=== PATIENT | female | born 1940 | race Caucasian/White ===

== ENCOUNTER 2021-02-25 09:04 | Inpatient (IN) | payer MEDICARE, OTHER ==
[2021-02-25] VITALS (9 sets, daily range): BP systolic 103–147; BP diastolic 61–87
[~2021-02-25] VITALS: Ht 160 cm; Wt 100.2 kg
[~2021-02-25 09:04] MED LIST: ALBUAER3 IN; ALLO300T2 PO; AMIT50TA3 PO; CHOL100067 PO; CYAN-17 PO; FLUT1AER3 IN; LEV100T PO; LOSA-39 PO; MAGN400T40 PO; MILK1000 OR; MONT4CHW9 PO; PANT40T PO; POTA10TA51 PO; SUMA50TA2 PO
[2021-02-25] MEDS ORDERED: CELECOXIB 100 MG CAP PO ONE (11:15)
[2021-02-25] MEDS ORDERED: PREGABALIN CAPSULE 75 MG CAP PO ONE (11:15)
[2021-02-25] MEDS ORDERED: ACETAMINOPHEN IV 1000 MG/100ML (10MG/ML) IV ONE (11:15)
[2021-02-25] MEDS ORDERED: ceFAZolin 1GM/50ML 100 ML IV ONE (11:52)
[2021-02-25] MEDS ORDERED: MORPHINE SULF(PF) 0.5MG/ML 10ML VIAL ONE (12:31)
[2021-02-25] MEDS ORDERED: GLYCOPYRROLATE 0.2 MG/ML 1ML VIAL ONE (12:32)
[2021-02-25] MEDS ORDERED: ONDANSETRON HCL 4 MG/2 ML VIAL ONE (12:32)
[2021-02-25] MEDS ORDERED: fentaNYL CITRATE 100 MCG/2 ML VL ONE (12:32)
[2021-02-25] MEDS ORDERED: KETAMINE HCL 10 ML ONE (12:32)
[2021-02-25] MEDS ORDERED: PROPOFOL 10 MG/ML 20 ML IV ONE (12:32)
[2021-02-25] MEDS ORDERED: LIDOCAINE 2% (LOCAL ANESTH.) PF 5ml SDV ONE (12:32)
[2021-02-25] MEDS ORDERED: MIDAZOLAM HCL 2MG/2ML 2ml VIAL (1mg/ml) ONE (12:32)
[2021-02-25] MEDS ORDERED: TETRACAINE 1% INJ 2 ML VIAL IJ ONE (13:19)
[2021-02-25] MEDS ORDERED: ROPIVACAINE 0.5% (5MG/ML) 20ML AMPULE IJ ONE (13:19)
[2021-02-25] MEDS ORDERED: FAMOTIDINE (10MG/ML) 2ML VL IV ONE (13:19)
[2021-02-25] MEDS ORDERED: TRANEXAMIC ACID 20 ML ONE (13:19)
[2021-02-25] MEDS ORDERED: VANCOMYCIN HCL 1000 MG VL ONE (13:23)
[2021-02-25] MEDS ORDERED: KETOROLAC TROMETH 30 MG/ML 1ML VIAL ONE (13:23)
[2021-02-25] MEDS ORDERED: BUPIVACAINE 0.25% INJ 50ML VIAL ONE (13:24)
[2021-02-25] MEDS ORDERED: LOPERAMIDE HCL 2 MG CAP PO ONE (13:30)
[2021-02-25] MEDS ORDERED: ONDANSETRON HCL 4 MG/2 ML VIAL IV PRN ×2 (15:45→16:00)
[2021-02-25] MEDS ORDERED: LOPERAMIDE HCL 2 MG CAP PO PRN (15:45)
[2021-02-25] MEDS ORDERED: SUMATRIPTAN SUCCINATE 50 MG PO SCH (15:45)
[2021-02-25] MEDS ORDERED: MORPHINE SULF INJ 2 MG/ML SYRINGE 1ML IV PRN (15:45)
[2021-02-25] MEDS ORDERED: ACETAMINOPHEN 325 MG TAB PO PRN (15:45)
[2021-02-25] MEDS ORDERED: NITROGLYCERIN 0.4 MG SL TAB SL PRN (15:45)
[2021-02-25] MEDS ORDERED: diphenhdrAMINE HCL 50 MG/1 ML VL IV PRN (16:00)
[2021-02-25] MEDS ORDERED: DexAMETHasone SOD PHOS 10MG/1ML VIAL INJ IV PRN (16:00)
[2021-02-25] MEDS ORDERED: NALOXONE HCL 0.4 MG/ML VIAL IV PRN (16:00)
[2021-02-25] MEDS: HYDROmorphone HCL 2 MG/ML VL IV PRN (17:35)
[2021-02-25] MEDS: ALBUTEROL SULF HFA 90MCG INH 200DOSE IN SCH (22:00)
[2021-02-25] MEDS: AMITRIPTYLINE HCL 25 MG TAB PO SCH (22:13)
[2021-02-25] MEDS: POTASSIUM CHL 10 Meq TABLET PO SCH (22:13)
[2021-02-26] VITALS (21 sets, daily range): BP systolic 91–136; BP diastolic 49–78
[2021-02-26] MEDS: POTASSIUM CHL 10 Meq TABLET PO SCH (06:30)
[2021-02-26] MEDS: KETOROLAC TROMETH 30 MG/ML 1ML VIAL IV SCH ×4 (06:30→18:06)
[2021-02-26] MEDS: LEVOTHYROXINE SODIUM 50 MCG TAB PO SCH (07:10)
[2021-02-26 08:38] LABS: Hematocrit 35.9 % (36.0-46.0); Hemoglobin 12.1 g/dL (12.2-16.2)
[2021-02-26 08:47] LABS: Albumin 2.8 g/dL (3.4-5.0); Calcium 8.5 mg/dL (8.5-10.1); Potassium 5.1 mmol/L (3.5-5.1)
[2021-02-26 08:48] LABS: BUN/Creatinine Ratio 19.7
[2021-02-26 08:51] LABS: Bilirubin, Total 0.8 mg/dL (0.2-1.0); Total Protein 5.6 g/dL (6.4-8.2)
[2021-02-26] MEDS: LACTATED RINGER'S 1,000 ML IV SCH ×4 (09:50→21:22)
[2021-02-26] MEDS: ceFAZolin 1GM/50ML 50 ML IV SCH ×3 (09:51→18:06)
[2021-02-26] MEDS: ALBUTEROL SULF HFA 90MCG INH 200DOSE IN SCH ×2 (10:00→21:39)
[2021-02-26] MEDS ORDERED: LOSARTAN POTASSIUM 50 MG TAB PO SCH (10:00)
[2021-02-26] MEDS: PANTOPRAZOLE 40 MG TAB PO SCH (10:04)
[2021-02-26] MEDS: ENOXAPARIN SOD 40 MG/0.4 ML SYRINGE SC SCH (10:10)
[2021-02-26] MEDS: AMITRIPTYLINE HCL 25 MG TAB PO SCH (21:39)
[2021-02-27] MEDS: KETOROLAC TROMETH 30 MG/ML 1ML VIAL IV SCH (00:09)
[2021-02-27] MEDS: ceFAZolin 1GM/50ML 50 ML IV SCH ×2 (00:09→06:15)
[2021-02-27 05:00] VITALS: BP 114/54
[2021-02-27 05:19] LABS: Basophils # (auto) 0 10 ^3/uL (0-0.2); Basophils % (auto) 0.1 % (0.0-2.0); Eosinophils # (auto) 0 10 ^3/uL (0-0.8); Eosinophils % (auto) 0.1 % (0.0-7.0); Mean Corpuscular Hemoglobin 34.2 pg (28.0-32.0); Monocytes # (auto) 1.7 10 ^3/uL (0-1.3); Neutrophils # (auto) 6.8 10 ^3/uL (1.6-8.6)
[2021-02-27 05:21] LABS: Hematocrit 31.6 % (36.0-46.0); Hemoglobin 11.1 g/dL (12.2-16.2); Lymphocytes # (auto) 1.8 10 ^3/uL (0.4-5.4); Lymphocytes % (auto) 17.3 % (10.0-50.0); Mean Corpuscular Hgb Conc. 35.2 g/dL (32.0-36.0); Mean Corpuscular Volume 97.2 fL (80.0-100.0); Monocytes % (auto) 16.7 % (0.0-12.0); Neutrophils % (auto) 65.8 % (37.0-80.0); Red Blood Cells 3.26 10^6/uL (4.0-5.20); Red Cell Distribution Width 14.1 % (11.8-14.3); White Blood Cell 10.3 10^3/uL (4.4-10.8)
[2021-02-27 05:37] LABS: BUN/Creatinine Ratio 27.2; Calcium 8.4 mg/dL (8.5-10.1); Magnesium 2.1 mg/dL (1.6-2.6); Potassium 4.2 mmol/L (3.5-5.1)
[2021-02-27] MEDS: LEVOTHYROXINE SODIUM 50 MCG TAB PO SCH (06:30)
[2021-02-27 08:56] VITALS: BP 103/43
[2021-02-27] MEDS: ALBUTEROL SULF HFA 90MCG INH 200DOSE IN SCH (10:00)
[2021-02-27] MEDS: OXYCODONE W/ ACETAMINOPHEN 5/325MG TABLET PO PRN (11:00)
[2021-02-27] MEDS: PANTOPRAZOLE 40 MG TAB PO SCH (11:04)
[2021-02-27] MEDS: ENOXAPARIN SOD 40 MG/0.4 ML SYRINGE SC SCH (11:04)
[2021-02-27] MEDS: HYDROmorphone HCL 2 MG/ML VL IV PRN ×2 (12:46→14:52)
[2021-02-27 13:00] VITALS: BP 102/48
[2021-02-27 17:00] VITALS: BP 97/42
[2021-02-27] MEDS: AMITRIPTYLINE HCL 25 MG TAB PO SCH (21:34)
[2021-02-27 22:00] VITALS: BP 124/50
[2021-02-28 05:00] VITALS: BP 139/52
[2021-02-28 06:20] LABS: Hematocrit 28.1 % (36.0-46.0); Hemoglobin 10.1 g/dL (12.2-16.2)
[2021-02-28] MEDS: LEVOTHYROXINE SODIUM 50 MCG TAB PO SCH (06:28)
[2021-02-28] MEDS: ONDANSETRON HCL 4 MG/2 ML VIAL IV PRN (06:50)
[2021-02-28] MEDS: HYDROmorphone HCL 2 MG/ML VL IV PRN ×2 (06:50→18:00)
[2021-02-28 09:00] VITALS: BP 86/37
[2021-02-28] MEDS: PANTOPRAZOLE 40 MG TAB PO SCH (09:30)
[2021-02-28] MEDS: ENOXAPARIN SOD 40 MG/0.4 ML SYRINGE SC SCH (09:31)
[2021-02-28] MEDS: ALBUTEROL SULF HFA 90MCG INH 200DOSE IN SCH (09:31)
[2021-02-28] MEDS ORDERED: ALBUTEROL SULF 2.5 MG/0.5ML(0.5%) NEB SOLN NEB PRN (10:00)
[2021-02-28] MEDS ORDERED: SODIUM CHLORIDE 0.9% 500 ML IV ONE (10:30)
[2021-02-28] MEDS: ALBUTEROL SULF 2.5 MG/0.5ML(0.5%) NEB SOLN NEB SCH ×4 (10:48→21:56)
[2021-02-28 13:00] VITALS: BP 119/60
[2021-02-28 13:29] VITALS: BP 86/37
[2021-02-28 17:00] VITALS: BP 129/82
[2021-02-28] MEDS: AMITRIPTYLINE HCL 25 MG TAB PO SCH (21:27)
[2021-02-28] MEDS: OXYCODONE W/ ACETAMINOPHEN 5/325MG TABLET PO PRN (21:27)
[2021-02-28 22:00] VITALS: BP 102/82
[2021-03-01 05:00] VITALS: BP 120/61
[2021-03-01] MEDS: LEVOTHYROXINE SODIUM 50 MCG TAB PO SCH (06:38)
[2021-03-01] MEDS: ALBUTEROL SULF 2.5 MG/0.5ML(0.5%) NEB SOLN NEB SCH ×5 (07:18→22:34)
[2021-03-01] MEDS: OXYCODONE W/ ACETAMINOPHEN 5/325MG TABLET PO PRN ×2 (08:45→19:58)
[2021-03-01 09:00] VITALS: BP 113/79
[2021-03-01] MEDS: PANTOPRAZOLE 40 MG TAB PO SCH (10:35)
[2021-03-01] MEDS: ENOXAPARIN SOD 40 MG/0.4 ML SYRINGE SC SCH (10:35)
[2021-03-01] MEDS: SOD CHL 0.45% 1,000 ML IV SCH ×4 (10:36→20:30)
[2021-03-01 11:24] LABS: Calcium 8.6 mg/dL (8.5-10.1)
[2021-03-01 11:27] LABS: BUN/Creatinine Ratio 32.9
[2021-03-01] MEDS ORDERED: IOHEXOL 350 MG/ML 100ML IJ ONE ×2 (12:06→13:35)
[2021-03-01 12:55] VITALS: BP 126/58
[2021-03-01] MEDS ORDERED: HEPARIN DRIP/D5W 100UNITS/ML 250 ML IV SCH ×2 (16:00→17:00)
[2021-03-01 16:35] LABS: Basophils # (auto) 0 10 ^3/uL (0-0.2); Basophils % (auto) 0.2 % (0.0-2.0); Eosinophils # (auto) 0.1 10 ^3/uL (0-0.8); Eosinophils % (auto) 1.7 % (0.0-7.0); Hematocrit 29.9 % (36.0-46.0); Hemoglobin 10.3 g/dL (12.2-16.2); Lymphocytes % (auto) 23.8 % (10.0-50.0); Mean Corpuscular Hemoglobin 33.7 pg (28.0-32.0); Mean Corpuscular Hgb Conc. 34.5 g/dL (32.0-36.0); Mean Corpuscular Volume 97.7 fL (80.0-100.0); Monocytes # (auto) 1.3 10 ^3/uL (0-1.3); Monocytes % (auto) 15.2 % (0.0-12.0); Neutrophils % (auto) 59.1 % (37.0-80.0); Nucleated Red Blood Cells % 0.1 %; Red Blood Cells 3.06 10^6/uL (4.0-5.20); White Blood Cell 8.4 10^3/uL (4.4-10.8)
[2021-03-01 16:50] LABS: INR 1.01 (0.9-1.15); Partial Thromboplastin Time 26.8 sec (23.0-31.2)
[2021-03-01 16:57] VITALS: BP 128/58
[2021-03-01] MEDS ORDERED: HEPARIN SODIUM (PORCINE) 5000 UNITS/ML 1ML VIAL IV ONE (17:00)
[2021-03-01] MEDS: AMITRIPTYLINE HCL 25 MG TAB PO SCH (21:10)
[2021-03-01 22:00] VITALS: BP 126/52
[2021-03-01 23:45] LABS: INR 1.05 (0.9-1.15); Partial Thromboplastin Time 63.5 sec (23.0-31.2)
[2021-03-02 05:00] VITALS: BP 126/65
[2021-03-02] MEDS: SOD CHL 0.45% 1,000 ML IV SCH ×3 (05:26→22:00)
[2021-03-02 05:55] LABS: Basophils # (auto) 0 10 ^3/uL (0-0.2); Eosinophils # (auto) 0.2 10 ^3/uL (0-0.8); Lymphocytes # (auto) 2.1 10 ^3/uL (0.4-5.4); Monocytes # (auto) 1.3 10 ^3/uL (0-1.3); Monocytes % (auto) 17.4 % (0.0-12.0); Neutrophils # (auto) 3.8 10 ^3/uL (1.6-8.6)
[2021-03-02] MEDS: LEVOTHYROXINE SODIUM 50 MCG TAB PO SCH (06:00)
[2021-03-02 06:10] LABS: INR 1.02 (0.9-1.15); Partial Thromboplastin Time 43.6 sec (23.0-31.2)
[2021-03-02 06:12] LABS: BUN/Creatinine Ratio 27.9; Calcium 8.3 mg/dL (8.5-10.1)
[2021-03-02 06:19] LABS: Basophils % (auto) 0.2 % (0.0-2.0); Eosinophils % (auto) 2.1 % (0.0-7.0); Hematocrit 27.2 % (36.0-46.0); Hemoglobin 9.5 g/dL (12.2-16.2); Mean Corpuscular Hemoglobin 34.2 pg (28.0-32.0); Mean Corpuscular Volume 97.9 fL (80.0-100.0); Neutrophils % (auto) 51.3 % (37.0-80.0); Red Blood Cells 2.78 10^6/uL (4.0-5.20); Red Cell Distribution Width 13.9 % (11.8-14.3); White Blood Cell 7.4 10^3/uL (4.4-10.8)
[2021-03-02] MEDS: ALBUTEROL SULF 2.5 MG/0.5ML(0.5%) NEB SOLN NEB SCH ×5 (06:55→22:35)
[2021-03-02 09:00] VITALS: BP 138/58
[2021-03-02] MEDS: PANTOPRAZOLE 40 MG TAB PO SCH (09:10)
[2021-03-02] MEDS: HYDROmorphone HCL 2 MG/ML VL IV PRN ×3 (10:41→19:00)
[2021-03-02] MEDS: ONDANSETRON HCL 4 MG/2 ML VIAL IV PRN ×3 (10:41→19:00)
[2021-03-02] MEDS ORDERED: HEPARIN DRIP/D5W 100UNITS/ML 250 ML IV SCH (12:00)
[2021-03-02] MEDS: Ensure HIGH Protein Chocolate 8oz Bottle PO SCH ×2 (12:00→17:58)
[2021-03-02 13:00] VITALS: BP 123/54
[2021-03-02 13:00] LABS: INR 1.02 (0.9-1.15); Partial Thromboplastin Time 43.3 sec (23.0-31.2)
[2021-03-02 17:00] VITALS: BP 121/55
[2021-03-02] MEDS ORDERED: APIXABAN 5 MG TAB PO SCH (18:00)
[2021-03-02] MEDS ORDERED: ACETAMINOPHEN 325 MG TAB PO PRN (21:45)
[2021-03-02] MEDS ORDERED: LOPERAMIDE HCL 2 MG CAP PO PRN (21:45)
[2021-03-02] MEDS ORDERED: SUMATRIPTAN SUCCINATE 50 MG PO SCH (21:45)
[2021-03-02] MEDS: AMITRIPTYLINE HCL 25 MG TAB PO SCH (21:49)
[2021-03-02 22:00] VITALS: BP 102/74
[2021-03-02] MEDS ORDERED: diphenhdrAMINE HCL 50 MG/1 ML VL IV PRN (22:00)
[2021-03-02] MEDS ORDERED: ONDANSETRON HCL 4 MG/2 ML VIAL IV PRN (22:00)
[2021-03-02] MEDS ORDERED: MORPHINE SULF INJ 2 MG/ML SYRINGE 1ML IV PRN (22:00)
[2021-03-02] MEDS ORDERED: HYDROmorphone HCL 2 MG/ML VL IV PRN (22:00)
[2021-03-02] MEDS: ALBUTEROL SULF HFA 90MCG INH 200DOSE IN SCH (22:00)
[2021-03-02] MEDS ORDERED: NITROGLYCERIN 0.4 MG SL TAB SL PRN (22:00)
[2021-03-02] MEDS ORDERED: ALBUTEROL SULF 2.5 MG/0.5ML(0.5%) NEB SOLN NEB PRN (22:00)
[2021-03-03 05:00] VITALS: BP 109/48
[2021-03-03] MEDS: APIXABAN 5 MG TAB PO SCH ×2 (06:02→18:15)
[2021-03-03] MEDS: LEVOTHYROXINE SODIUM 50 MCG TAB PO SCH (06:02)
[2021-03-03] MEDS: OXYCODONE W/ ACETAMINOPHEN 5/325MG TABLET PO PRN ×3 (06:03→21:13)
[2021-03-03] MEDS: ALBUTEROL SULF 2.5 MG/0.5ML(0.5%) NEB SOLN NEB SCH ×5 (06:58→22:46)
[2021-03-03 08:22] VITALS: BP 132/62
[2021-03-03] MEDS: Ensure HIGH Protein Chocolate 8oz Bottle PO SCH ×2 (08:35→18:00)
[2021-03-03] MEDS: PANTOPRAZOLE 40 MG TAB PO SCH (09:40)
[2021-03-03 10:22] VITALS: BP 132/62
[2021-03-03 13:08] VITALS: BP 129/72
[2021-03-03 17:00] VITALS: BP 133/68
[2021-03-03] MEDS: SOD CHL 0.45% 1,000 ML IV SCH ×2 (18:00→19:00)
[2021-03-03] MEDS: ALBUTEROL SULF HFA 90MCG INH 200DOSE IN SCH (18:50)
[2021-03-03] MEDS: AMITRIPTYLINE HCL 25 MG TAB PO SCH (21:05)
[2021-03-03 22:00] VITALS: BP 104/47
[2021-03-04] MEDS: SOD CHL 0.45% 1,000 ML IV SCH ×2 (04:00→14:00)
[2021-03-04] MEDS: OXYCODONE W/ ACETAMINOPHEN 5/325MG TABLET PO PRN ×3 (04:32→16:15)
[2021-03-04 05:00] VITALS: BP 120/49
[2021-03-04] MEDS: APIXABAN 5 MG TAB PO SCH ×3 (05:49→18:00)
[2021-03-04] MEDS: LEVOTHYROXINE SODIUM 50 MCG TAB PO SCH (05:57)
[2021-03-04] MEDS: ALBUTEROL SULF 2.5 MG/0.5ML(0.5%) NEB SOLN NEB SCH ×4 (06:45→18:00)
[2021-03-04 09:00] VITALS: BP 106/45
[2021-03-04] MEDS: Ensure HIGH Protein Chocolate 8oz Bottle PO SCH ×2 (09:32→18:00)
[2021-03-04] MEDS: PANTOPRAZOLE 40 MG TAB PO SCH (09:54)
[2021-03-04 13:00] VITALS: BP 128/45
[2021-03-04 16:49] VITALS: BP 127/57
[2021-03-04 17:25] VITALS: BP 163/65
[2021-03-09] MEDS ORDERED: APIXABAN 5 MG TAB PO SCH ×2 (10:00→22:00)
== END 2021-03-04 18:45 | disposition home health service (06) | DRG 469 ==
LOC: SUR 09:04 → TELE 15:34 → UNDOADMIN 15:34 → WEST WING 15:34 → UNDOADMIN 18:45 → WEST WING 18:45 → TELE-WESTW 18:55 → TELE 18:55 → TELE-WESTW 03-02 15:34 → UNDOADMIN 03-02 15:34 → WEST WING 03-02 15:34 → UNDODISIN 03-02 18:40
PROVIDERS: ADMIT Orthopaedic Surgery Adult Reconstructive Orthopaedic Surgery; ATTEND Internal Medicine
PROC: 8E0YXBG Computer Assisted Procedure of Lower Extremity, With Computerized Tomography (ICD-10-PCS; 2021-02-25)
PROC: 3E0T3BZ Introduction of Anesthetic Agent into Peripheral Nerves and Plexi, Percutaneous Approach (ICD-10-PCS; 2021-02-25)
PROC: 0SRD0J9 Replacement of Left Knee Joint with Synthetic Substitute, Cemented, Open Approach (ICD-10-PCS; principal; 2021-02-25 13:38)
DX: M17.0 Bilateral primary osteoarthritis of knee (principal); N17.0 Acute kidney failure with tubular necrosis; I26.93 Single subsegmental thrombotic pulmonary embolism without acute cor pulmonale; J96.01 Acute respiratory failure with hypoxia; J98.11 Atelectasis; E87.5 Hyperkalemia; I10 Essential (primary) hypertension; Z60.2 Problems related to living alone; E03.9 Hypothyroidism, unspecified; J44.9 Chronic obstructive pulmonary disease, unspecified; I27.21 Secondary pulmonary arterial hypertension; Z88.2 Allergy status to sulfonamides; Z90.710 Acquired absence of both cervix and uterus; Z79.899 Other long term (current) drug therapy; Z90.89 Acquired absence of other organs; Z90.49 Acquired absence of other specified parts of digestive tract
CPT/HCPCS: 36415; 36600; 71045; 71275; 73562; 80048; 80053; 82805; 83735; 85014; 85018; 85025; 85049; 85610; 85730; 86850; 86900; 86901; 93970; 94640; 97110; 97116; 97530; G0378; J0131; J0690; J1885; J2001; J2250; J2405; J2704; J3490

== ENCOUNTER 2022-08-18 12:06 | Emergency (ER) | payer MEDICARE, OTHER ==
[~2022-08-18] VITALS: Ht 160 cm; Wt 72.0 kg
[~2022-08-18 12:06] MED LIST changes: -AMIT50TA3 PO; +AMIT50TA5 PO
[2022-08-18 12:15] VITALS: BP 90/43
== END 2022-08-18 14:42 | disposition home or self-care (01) ==
LOC: EDBD 12:06 → ER 12:06
DX: S02.2XXA Fracture of nasal bones, initial encounter for closed fracture (principal); S01.21XA Laceration without foreign body of nose, initial encounter; J45.909 Unspecified asthma, uncomplicated; I10 Essential (primary) hypertension; Z90.49 Acquired absence of other specified parts of digestive tract; Z88.2 Allergy status to sulfonamides; Z90.710 Acquired absence of both cervix and uterus; W18.39XA Other fall on same level, initial encounter; Y93.89 Activity, other specified; Y92.89 Other specified places as the place of occurrence of the external cause; Y99.8 Other external cause status
CPT/HCPCS: 12011; 70450; 70486

== ENCOUNTER 2024-05-19 08:30 | Inpatient (IN) | payer MEDICARE, BC, MEDICAID ==
[~2024-05-19] VITALS: Ht 160 cm; Wt 98.5 kg
[~2024-05-19 08:30] MED LIST changes: +AMIT50TA12 PO; -AMIT50TA5 PO; -LEV100T PO; +LEVO-849 PO; -LOSA-39 PO; +LOSA-535 PO; +MONT4CHW74 PO; -MONT4CHW9 PO; +POTA-36 PO; -POTA10TA51 PO
[2024-05-19 09:22] VITALS: PULSE 90; RESP 19; O2SAT 95
[2024-05-19 12:00] LABS: Basophils # (auto) 0.1 10 ^3/uL (0-0.2); Basophils % (auto) 0.3 % (0.0-2.0); Eosinophils # (auto) 0.1 10 ^3/uL (0-0.8); Eosinophils % (auto) 0.2 % (0.0-7.0); Hematocrit 53.5 % (36.0-46.0); Hemoglobin 18.3 g/dL (12.2-16.2); Lymphocytes # (auto) 2.2 10 ^3/uL (0.4-5.4); Lymphocytes % (auto) 10.6 % (10.0-50.0); Mean Corpuscular Hemoglobin 32.6 pg (28.0-32.0); Mean Corpuscular Hgb Conc. 34.2 g/dL (32.0-36.0); Mean Corpuscular Volume 95.4 fL (80.0-100.0); Monocytes # (auto) 1.9 10 ^3/uL (0-1.3); Neutrophils # (auto) 16.7 10 ^3/uL (1.6-8.6); Neutrophils % (auto) 79.9 % (37.0-80.0); Nucleated Red Blood Cells % 0.1 %; Platelet Count (auto) 178 10^3/uL (140-450); Red Blood Cells 5.61 10^6/uL (4.0-5.20); Red Cell Distribution Width 14.3 % (11.8-14.3)
[2024-05-19 12:03] LABS: Alanine Aminotransferase 24 U/L (7-40); Albumin 3.9 g/dL (3.2-4.8); Alkaline Phosphatase 93 U/L (46-116); Anion Gap 7 (5-15); Aspartate Aminotransferase 24 U/L (13-40); BUN/Creatinine Ratio 19.8 (10.0-20.0); Bilirubin, Total 0.7 mg/dL (0.2-1.0); Blood Urea Nitrogen 22 mg/dL (9-23); Calcium 10.5 mg/dL (8.7-10.4); Carbon Dioxide 27 mmol/L (20-30); Chloride 106 mmol/L (98-107); Glucose 137 mg/dL (74-106); Potassium 4.4 mmol/L (3.5-5.1); Sodium 140 mmol/L (136-145); Total Protein 6.4 g/dL (5.7-8.2)
[2024-05-19 12:05] LABS: Lactic Acid w/Reflex 2.5 mmol/L (0.4-2.0)
[2024-05-19] MEDS: SODIUM CHLORIDE 0.9% 1,000 ML IV ONE (12:38)
[2024-05-19] MEDS: cefTRIAXone 2GM/50ML D5W 50 ML IV ONE (13:09)
[2024-05-19 14:13] LABS: COVID19 ANTIGEN SOFIA FIA NEGATIVE (NEGATIVE)
[2024-05-19 14:36] LABS: Urine Bacteria FEW /hpf (None Seen); Urine Blood Negative /uL (Negative); Urine Clarity Turbid (Clear); Urine Color Yellow (Yellow); Urine Hyaline Cast FEW /lpf (0 - 2); Urine Mucus FEW (None Seen); Urine Protein, UAD 1+ (Negative); Urine Specific Gravity 1.029 (1.001-1.035); Urine Urobilinogen Normal (Negative); Urine WBC 1 /hpf (0 - 5); Urine pH 5.5 (5.0-9.0)
[2024-05-19] MEDS ORDERED: DOCUSATE SOD 100 MG CAP PO PRN (15:30)
[2024-05-19] MEDS ORDERED: ONDANSETRON HCL 4 MG/2 ML VIAL IV PRN (15:30)
[2024-05-19] MEDS ORDERED: HYDROcodone-ACET 5/325MG TAB PO PRN (15:30)
[2024-05-19] MEDS ORDERED: ACETAMINOPHEN 325 MG TAB PO PRN (15:30)
[2024-05-19] MEDS: SODIUM CHLORIDE 0.9% 1,000 ML IV SCH (16:19)
[2024-05-19] MEDS: metroNIDAZOLE 500MG/100ML 100 ML IV SCH (16:19)
[2024-05-19] MEDS ORDERED: hydrALAZINE HCL 20 MG/ML VL IV PRN (17:45)
[2024-05-19 18:25] VITALS: BP 129/70; PULSE 80; RESP 15; RESP 18; TEMP 98.7; O2SAT 95; O2SAT 98
[2024-05-19 19:10] LABS: Rapid Influenza A Negative (Negative); Rapid Influenza B Negative (Negative)
[2024-05-19 19:59] LABS: Triglycerides 88 mg/dL (< 150)
[2024-05-19 20:00] VITALS: PULSE 96; PULSE 98; RESP 16; O2SAT 94
[2024-05-19 20:00] LABS: LDL Cholesterol 75 mg/dL (< 100)
[2024-05-19 20:01] LABS: Cholesterol 134 mg/dL (< 200); HDL Cholesterol 42 mg/dL (40-59)
[2024-05-19 21:00] VITALS: BP 123/45; PULSE 98; RESP 16; TEMP 98.1; O2SAT 94
[2024-05-19] MEDS ORDERED: metroNIDAZOLE 500MG/100ML 100 ML IV SCH (22:00)
[2024-05-20] VITALS (9 sets, daily range): BP systolic 105–146; BP diastolic 49–68; PULSE 64–94; RESP 16–22; TEMP 97.6–98.7; O2SAT 90–96
[2024-05-20 06:05] LABS: Chloride 110 mmol/L (98-107); Potassium 3.8 mmol/L (3.5-5.1); Sodium 139 mmol/L (136-145)
[2024-05-20 06:06] LABS: Anion Gap 6 (5-15); Carbon Dioxide 23 mmol/L (20-30)
[2024-05-20 06:07] LABS: Calcium 9.5 mg/dL (8.7-10.4)
[2024-05-20 06:11] LABS: BUN/Creatinine Ratio 15.4 (10.0-20.0); Blood Urea Nitrogen 14 mg/dL (9-23); Glucose 119 mg/dL (74-106)
[2024-05-20 08:45] LABS: Basophils # (auto) 0 10 ^3/uL (0-0.2); Basophils % (auto) 0.4 % (0.0-2.0); Eosinophils # (auto) 0.3 10 ^3/uL (0-0.8); Eosinophils % (auto) 3.2 % (0.0-7.0); Hematocrit 44.4 % (36.0-46.0); Hemoglobin 14.8 g/dL (12.2-16.2); Lymphocytes # (auto) 1.9 10 ^3/uL (0.4-5.4); Lymphocytes % (auto) 22.1 % (10.0-50.0); Mean Corpuscular Hemoglobin 32.3 pg (28.0-32.0); Mean Corpuscular Hgb Conc. 33.4 g/dL (32.0-36.0); Mean Corpuscular Volume 96.8 fL (80.0-100.0); Monocytes % (auto) 11.6 % (0.0-12.0); Neutrophils # (auto) 5.3 10 ^3/uL (1.6-8.6); Neutrophils % (auto) 62.7 % (37.0-80.0); Nucleated Red Blood Cells % 0.1 %; Platelet Count (auto) 163 10^3/uL (140-450); Red Blood Cells 4.59 10^6/uL (4.0-5.20); Red Cell Distribution Width 14.4 % (11.8-14.3); White Blood Cell 8.4 10^3/uL (4.4-10.8)
[2024-05-20] MEDS: PANTOPRAZOLE 40 MG/10 ML VIAL INJ IV SCH (08:50)
[2024-05-20] MEDS: LOSARTAN POTASSIUM 25 MG TAB PO SCH (08:51)
[2024-05-20] MEDS: ENOXAPARIN SOD 40 MG/0.4 ML SYRINGE SC SCH (08:51)
[2024-05-20] MEDS: cefTRIAXone 1GM/50ML D5W 50 ML IV SCH (11:11)
[2024-05-20] MEDS: AZITHROMYCIN 500MG/ 250ML 250 ML IV ONE (14:27)
[2024-05-21] VITALS (15 sets, daily range): BP systolic 99–128; BP diastolic 42–56; PULSE 69–98; RESP 16–78; TEMP 97.5–98.2; O2SAT 90–99
[2024-05-21] MEDS ORDERED: IOHEXOL 350 MG/ML 100ML IJ ONE (12:49)
[2024-05-21] MEDS: AZITHROMYCIN 500MG/ 250ML 250 ML IV SCH (13:49)
[2024-05-21] MEDS: ALBUTEROL SULF 2.5 MG/0.5ML(0.5%) NEB SOLN NEB SCH (14:43)
[2024-05-22] VITALS (18 sets, daily range): BP systolic 105–145; BP diastolic 45–66; PULSE 68–86; RESP 16–20; TEMP 97.6–98.6; O2SAT 90–100
[2024-05-23] VITALS (19 sets, daily range): BP systolic 112–150; BP diastolic 44–85; PULSE 60–82; RESP 14–20; TEMP 97.8–98.3; O2SAT 91–100
[2024-05-23 14:28] LABS: COVID19 ANTIGEN SOFIA FIA NEGATIVE (NEGATIVE)
== END 2024-05-23 18:47 | DRG 871 ==
LOC: ER 08:30 → EDSEX 08:30 → EDBD 08:30 → OVERFLOW 15:26 → TELE 15:55 → TELE-EAST 18:18
PROVIDERS: ADMIT Registered Nurse General Practice; ATTEND Family Medicine
PROC: 05HF33Z Insertion of Infusion Device into Left Cephalic Vein, Percutaneous Approach (ICD-10-PCS; principal; 2024-05-23)
PROC: B54NZZA Ultrasonography of Left Upper Extremity Veins, Guidance (ICD-10-PCS; 2024-05-23)
DX: A41.9 Sepsis, unspecified organism (principal); J15.69 Pneumonia due to other Gram-negative bacteria; R65.21 Severe sepsis with septic shock; J15.9 Unspecified bacterial pneumonia; N30.00 Acute cystitis without hematuria; J90 Pleural effusion, not elsewhere classified; E87.20 Acidosis, unspecified; R18.8 Other ascites; Z20.822 Contact with and (suspected) exposure to COVID-19; K74.60 Unspecified cirrhosis of liver; K29.00 Acute gastritis without bleeding; I48.91 Unspecified atrial fibrillation; E66.9 Obesity, unspecified; E03.9 Hypothyroidism, unspecified; I10 Essential (primary) hypertension; M10.9 Gout, unspecified; J45.909 Unspecified asthma, uncomplicated; K21.9 Gastro-esophageal reflux disease without esophagitis; G43.909 Migraine, unspecified, not intractable, without status migrainosus; Z96.653 Presence of artificial knee joint, bilateral; Z88.2 Allergy status to sulfonamides; Z90.710 Acquired absence of both cervix and uterus; Z90.49 Acquired absence of other specified parts of digestive tract; Z86.711 Personal history of pulmonary embolism; Z68.38 Body mass index [BMI] 38.0-38.9, adult
CPT/HCPCS: 36415; 71045; 71275; 74176; 80048; 80053; 80061; 81001; 83036; 83605; 84443; 84484; 85025; 85379; 87040; 87426; 87493; 87804; 93005; 93306; 93970; 94640; 96361; 96365; 97163; G0378; J2470; J3490

== ENCOUNTER 2025-01-10 07:00 | Inpatient (IN) | payer BC, MEDICAID, MEDICARE ==
[~2025-01-10] VITALS: Ht 157.5 cm; Wt 83.8 kg
[2025-01-10] MEDS: ACETAMINOPHEN 325 MG TAB PO ONE (07:59)
[2025-01-10 08:01] LABS: Urine Bacteria None Seen /hpf (None Seen)
[2025-01-10 08:08] LABS: Urine Blood Negative /uL (Negative); Urine Budding Yeast OCCASIONAL /hpf (None Seen); Urine Clarity Turbid (Clear); Urine Color Yellow (Yellow); Urine Protein, UAD TRACE (Negative); Urine Specific Gravity 1.032 (1.001-1.035); Urine Squamous Epithelial Cell FEW /hpf (<5); Urine Urobilinogen 2 mg/dL (Negative); Urine WBC 18 /HPF (0-5); Urine pH 5.5 (5.0-9.0)
--- NOTE | 2025-01-10 08:17 | ED.PDOC ---
Back pain HPI HPI Comments 84 y/o F, JULIO, presents to the ED for CC of back pain. EMS reports, patient is coming from home where she complains of lower back pain x1week. Patient states, she has been experiencing sharp lower back pain X1week. Patient relays, that she has tried over the counter pain medications which have provided no relief. Patient endorses, having an appointment with her PCP tomorrow however, she is unable to tolerate pain. Patient denies injury or trauma. No other symptoms or modifying factors present at this time. Chief Complaint: Back Pain Time Seen by MD: 08:00 Primary Care Provider: REYNA Reviewed Notes: Nurses Notes, Hydraulic Lift Operator Notes, Medications, Allergies Allergies: Coded Allergies: Sulfa Antibiotics (Verified Allergy, Intermediate, EDEMA, HIVES, 02/26/21) Home Meds Reported Medications Cyanocobalamin (B12) 1,000 Mcg Cap, 1000 MCG PO, CAP 02/21/21 Cholecalciferol (D3) 250 Mcg Cap, PO, CAP 02/21/21 Milk Thistle (Silybum Marianum (MILK THISTLE) 1,000 Mg Cap, 1000 MG OR, CAP 02/21/21 Magnesium Oxide (MAGNESIUM OXIDE) 400 Mg Tab, 400 MG PO, TAB 02/21/21 Sumatriptan Succinate (Imitrex) 50 Mg Tab, 1 TAB PO UD, #9 TAB 02/21/21 Qnndrfqxxtd-Duacpswpuypg-Ophya (Trelegy Ellipta 100-62.5-25 Mcg/INH) 1 Aer Aer, 1 AER IN, AER 02/21/21 Albuterol Sulfate (VENTOLIN MDI) 90 Mcg Ih, 50 MCG IN, INH 02/21/21 Amitriptyline Hcl (Amitriptyline Hcl) 50 Mg Tab, 50 MG PO HS, TAB 02/21/21 Losartan Potassium (Losartan Potassium) 100 Mg Tab, 100 MG PO DAILY, TAB 02/21/21 Montelukast Sodium (Singulair) 4 Mg Chw, PO DAILY, TAB.CHEW 02/21/21 Pantoprazole Sodium Sesquihydr (Pantoprazole Sodium) 40 Mg Tab, 25 MG PO DAILY, TAB 02/21/21 Levothyroxine Sodium (SYNTHROID TABLET) 100 Mcg Tb, 125 MCG PO DAILY, TAB 02/21/21 Allopurinol (Allopurinol) 300 Mg Tab, 300 MG PO DAILY, TAB 02/21/21 Potassium Chloride (POTASSIUM CHLORIDE CR) 10 Meq Tb, 10 MEQ PO QID, TAB 02/21/21 Information Source: Patient, Emergency Med Personnel Mode of Arrival: EMS Timing: Weeks Duration: Since onset Location of Back pain: (B) Lumbar Severity: Moderate Prehospital treatment: None Quality: Sharp Onset: Spontaneous History of: None Modifying Factors: Nothing Associated signs and symptoms: None Past Medical History PAST MEDICAL HISTORY: Asthma, Gout, HTN, Thyroid Surgical History: Cholecystectomy, Hysterectomy, Tonsillectomy COTTON BROKER History: Denies all COTTON BROKER Hx Family History Family History: Reviewed,noncontributory to illness Social History Smoker: Non-Smoker Alcohol: Denies ETOH Use Drugs: Denies Drug Use Lives In: Home Constitutional: denies: chills, diaphoresis, fatigue, fever, malaise, sweats, weakness, others EENTM: denies: blurred vision, double vision, ear bleeding, ear discharge, ear drainage, ear pain, ear ringing, eye pain, eye redness, hearing loss, mouth pain, mouth swelling, nasal discharge, nose bleeding, nose congestion, nose pain, photophobia, tearing, throat pain, throat swelling, voice changes, others Respiratory: denies: cough, hemoptysis, orthopnea, SOB at rest, shortness of breath, SOB with excertion, stridor, wheezing, others Cardiovascular: denies: chest pain, dizzy spells, diaphoresis, Dyspnea on exertion, edema, irregular heart beat, left arm pain, lightheadedness, palpitations, PND, syncope, others Gastrointestinal: denies: abdomen distended, abdominal pain, blood streaked bowels, constipated, diarrhea, dysphagia, difficulty swallowing, hematemesis, melena, nausea, poor appetite, poor fluid intake, rectal bleeding, rectal pain, vomiting, others Genitourinary: denies: abnormal vagina bleeding, burning, dyspareunia, dysuria, flank pain, frequency, hematuria, incontinence, pain, , vagina discharge, urgency, others Neurological: denies: dizziness, fainting, headache, left sided numbness, left sided weakness, numbness, paresthesia, pre-existing deficit, right sided numbness, right sided weakness, seizure, speech problems, tingling, tremors, weakness, others Musculoskeletal: reports: back pain; denies: gout, joint pain, joint swelling, muscle pain, muscle stiffness, neck pain, others Integumetry: denies: bruises, change in color, change in hair/nails, dryness, laceration, lesions, lumps, rash, wounds, others Allergic/Immunocompromised: denies: Difficulty Healing, Frequent Infections, Hives, Itching, others Hematologic/Lymphatic: denies: anemia, blood clots, easy bleeding, easy bruising, swollen glands, others Endocrine: denies: excessive hunger, excessive sweating, excessive thirst, excessive urination, flushing, intolerance to cold, intolerance to heat, unexplained weight gain, unexplained weight loss, others Psychiatric: denies: anxiety, bipolar disorder, depression, hopeless, panic disorder, schizophrenia, sleepless, suicidal, others All Other Systems: Reviewed and Negative Physical Exam General Appearance: No Apparent Distress, Normal HEENT: Normal ENT Inspection, Pharynx Normal, TMs Normal Neck: Full Range of Motion, Non-Tender, Normal, Normal Inspection Respiratory: Chest Non-Tender, Lungs Clear, No Accessory Muscle Use, No Respiratory Distress, Normal Breath Sounds Cardiovascular: No Edema, No JVD, No Murmur, No Gallop, Normal Peripheral Pulses, Regular Rate/Rhythm Breast Exam: Deferred Gastrointestinal: No Organomegaly, Non Tender, No Pulsatile Mass, Normal Bowel Sounds, Soft Genitalia: Deferred Pelvic: Deferred Rectal: Deferred Extremities: No calf tenderness, Normal capillary refill, Normal inspection, Normal range of motion, Non-tender, No pedal edema Musculoskeletal : Apperance: Normal Neurologic: Alert, pocketbook maker II-XII nml as Tested, No Motor Deficits, Normal Affect, Normal Mood, No Sensory Deficits Cerebellar Function: Normal Reflexes: Normal Skin: Dry, Normal Color, Warm Lymphatic: No Adenopathy Was a procedure done? Was a procedure done?: No Back Pain Differential Dx Differential Diagnosis: Musculoskeletal Pain, Strain X-Ray, Labs, Meds, VS Vital Signs Date Time Temp Pulse Resp B/P (MAP) Pulse Ox O2 Delivery O2 Flow Rate FiO2 01/10/25 10:24 94 16 166/92 01/10/25 10:08 98.1 94 15 166/92 (116) 96 98.1 01/10/25 08:04 97.8 87 15 140/74 (96) 98 97.8 01/10/25 08:02 Room Air* 0 21 01/10/25 07:08 98.2 105 18 141/78 (99) 99 98.2 Lab Test 01/10/25 10:00 01/10/25 08:23 01/10/25 08:01 Range/Units Lactic Acid Level 1.6 0.4-2.0 mmol/L White Blood Count 6.7 4.4-10.8 10^3/uL Red Blood Count 4.91 4.0-5.20 10^6/uL Hemoglobin 15.9 12.2-16.2 g/dL Hematocrit 45.4 36.0-46.0 % Mean Corpuscular Volume 92.5 80.0-100.0 fL Mean Corpuscular Hemoglobin 32.4 H 28.0-32.0 pg Mean Corpuscular Hemoglobin Concent 35.0 32.0-36.0 g/dL Red Cell Distribution Width 13.6 11.8-14.3 % Platelet Count 202 140-450 10^3/uL Mean Platelet Volume 8.9 6.9-10.8 fL Neutrophils (%) (Auto) 53.5 37.0-80.0 % Lymphocytes (%) (Auto) 35.1 10.0-50.0 % Monocytes (%) (Auto) 8.7 0.0-12.0 % Eosinophils (%) (Auto) 2.3 0.0-7.0 % Basophils (%) (Auto) 0.4 0.0-2.0 % Neutrophils # (Auto) 3.6 1.6-8.6 10 ^3/uL Lymphocytes # (Auto) 2.4 0.4-5.4 10 ^3/uL Monocytes # (Auto) 0.6 0-1.3 10 ^3/uL Eosinophils # (Auto) 0.2 0-0.8 10 ^3/uL Basophils # (Auto) 0 0-0.2 10 ^3/uL Nucleated Red Blood Cells 0.1 % Sodium Level 139 136-145 mmol/L Potassium Level 3.6 3.5-5.1 mmol/L Chloride Level 105 98-107 mmol/L Carbon Dioxide Level 23 20-31 mmol/L Anion Gap 11 5-15 Blood Urea Nitrogen 18 9-23 mg/dL Creatinine 0.80 0.550-1.02 mg/dL Glomerular Filtration Rate Calc 73 >90 mL/min BUN/Creatinine Ratio 22.5 H 10.0-20.0 Serum Glucose 129 H 74-106 mg/dL Calcium Level 10.6 H 8.7-10.4 mg/dL Urine Color Yellow Yellow Urine Clarity Turbid H Clear Urine pH 5.5 5.0-9.0 Urine Specific [place] 1.032 1.001-1.035 Urine Protein Trace H Negative Urine Ketones 1+ H Negative Urine Blood Negative Negative /uL Urine Nitrite Negative Negative Urine Bilirubin Negative Negative Urine Urobilinogen 2 H Negative mg/dL Urine Leukocyte Esterase 3+ Negative /uL Urine RBC 1 0 - 4 /hpf Urine Microscopic WBC 18 H 0-5 /HPF Urine Squamous Epithelial Cells Few <5 /hpf Urine Bacteria None seen None Seen /hpf Urine Yeast (Budding) Occasional None Seen /hpf Urine Glucose Normal Normal mg/dL Current Medications Medications (Trade) Dose Ordered Sig/Lynne Route Start Time Stop Time Status Last Admin Acetaminophen (Tylenol Tablet) 650 mg ONCE ONCE PO 01/10/25 07:45 01/10/25 07:46 DC 01/10/25 07:59 Ceftriaxone Sodium 50 ml @ 100 mls/hr ONCE ONCE IV 01/10/25 09:45 01/10/25 10:14 DC 01/10/25 10:10 Morphine Sulfate 4 mg ONCE ONCE IV 01/10/25 10:30 01/10/25 10:31 DC 01/10/25 10:24 Ondansetron HCl (Zofran) 4 mg ONCE ONCE IV 01/10/25 10:30 01/10/25 10:31 DC 01/10/25 10:23 [place] [address] Ph: [phone] DIAGNOSTIC IMAGING Diagnostic Imaging Report : [id number] Signed PATIENT: BRE PANDA ACCT: [id number] UNIT: [id number] : 1940 LOC: ER ROOM / BED: / AGE / SEX: 84 / F ADM STATUS: REG ER SERVICE [id number] ORDERING PHYSICIAN: SAI AVERY MD PROCEDURE(s): LUMB2 - LUMBAR SPINE 3 VIEW REASON: lower back pain ORDER NUMBER(s): [id number], ACCESSION NUMBER(s): [id number] INDICATION: lower back pain TECHNIQUE: Frontal and lateral views of the lumbar spine were obtained. COMPARISON: None FINDINGS: Scoliotic curvature of spine . Multilevel degenerative changes most pronounced at L4-L5 and L5-s1 causing moderate degenerative changes and spinal canal stenosis. There are no fractures or subluxations. Vertebral body heights and disc spaces are well maintained. Paravertebral soft tissues are unremarkable. IMPRESSION: 1. Of the visualized spine, there is no evidence for fracture or subluxation. ATED BY: DINORAH LOZOYA MD DICTATED DATE/TIME: 01/10/25836 SIGNED BY: DINORAH LOZOYA MD SIGNED DATE/TIME: 01/10/25836 CC: Time of 1ST Reevaluation: 08:30 Reevaluation 1ST: Unchanged Patient Education/Counseling: Diagnosis, Treatment Family Education/Counseling: No Family Present Departure 1 Departure Time of Disposition: 10:40 (Patient with a complicated UTI. Patient is not septic. Patient also with likely lumbar strain from intractable back pain. We will admit patient for further workup) Impression: Primary Impression: Complicated UTI (urinary tract infection) Additional Impressions: Lumbar radiculopathy Generalized weakness Disposition: ADMITTED INPATIENT Admit to: Med Surg Condition: Serious Critical Care Note Critical Care Time?: No Stability Stability form required: No Heart Score Heart Score: Heart Score Response (Comments) Value History N/A 0 EKG N/A 0 Age N/A 0 Risk Factors N/A 0 Troponin N/A 0 Total 0 I personally scribed for SAI AVERY MD ([email or web address]) on 01/10/25 at 08:17. Electronically submitted by Noy Laboy ([email or web address]). I personally scribed for SAI AVERY MD ([email or web address]) on 01/10/25 at 09:35. Electronically submitted by Noy Laboy ([email or web address]). SAI AVERY MD January 10, 2025 08:17
--- NOTE | 2025-01-10 08:39 | DVH ---
INDICATION: lower back pain TECHNIQUE: Frontal and lateral views of the lumbar spine were obtained. COMPARISON: None FINDINGS: Scoliotic curvature of spine . Multilevel degenerative changes most pronounced at L4-L5 and L5-s1 causing moderate degenerative changes and spinal canal stenosis. There are no fractures or lucia bluxations. Vertebral body heights and disc spaces are well maintained. Paravertebral soft tissues ar e unremarkable. IMPRESSION: 1. Of the visualized spine, there is no evidence for fracture or subluxation.
[2025-01-10 08:44] LABS: Basophils # (auto) 0 10 ^3/uL (0-0.2); Basophils % (auto) 0.4 % (0.0-2.0); Eosinophils # (auto) 0.2 10 ^3/uL (0-0.8); Eosinophils % (auto) 2.3 % (0.0-7.0); Hematocrit 45.4 % (36.0-46.0); Hemoglobin 15.9 g/dL (12.2-16.2); Lymphocytes # (auto) 2.4 10 ^3/uL (0.4-5.4); Lymphocytes % (auto) 35.1 % (10.0-50.0); Mean Corpuscular Hemoglobin 32.4 pg (28.0-32.0); Mean Corpuscular Volume 92.5 fL (80.0-100.0); Monocytes # (auto) 0.6 10 ^3/uL (0-1.3); Monocytes % (auto) 8.7 % (0.0-12.0); Neutrophils # (auto) 3.6 10 ^3/uL (1.6-8.6); Neutrophils % (auto) 53.5 % (37.0-80.0); Nucleated Red Blood Cells % 0.1 %; Platelet Count (auto) 202 10^3/uL (140-450); Red Blood Cells 4.91 10^6/uL (4.0-5.20); Red Cell Distribution Width 13.6 % (11.8-14.3); White Blood Cell 6.7 10^3/uL (4.4-10.8)
[2025-01-10 08:45] LABS: Chloride 105 mmol/L (98-107); Potassium 3.6 mmol/L (3.5-5.1); Sodium 139 mmol/L (136-145)
[2025-01-10 08:46] LABS: Anion Gap 11 (5-15); Carbon Dioxide 23 mmol/L (20-31)
[2025-01-10 08:52] LABS: BUN/Creatinine Ratio 22.5 (10.0-20.0); Blood Urea Nitrogen 18 mg/dL (9-23); Calcium 10.6 mg/dL (8.7-10.4); Glucose 129 mg/dL (74-106)
[2025-01-10] MEDS: cefTRIAXone 1GM/50ML D5W 50 ML IV ONE (10:10)
[2025-01-10] MEDS: ONDANSETRON HCL 4 MG/2 ML VIAL IV ONE (10:23)
[2025-01-10] MEDS: MORPHINE SULFATE 4 MG/ML SYR/VIAL IV ONE (10:24)
[2025-01-10] MEDS ORDERED: ONDANSETRON HCL 4 MG/2 ML VIAL IV PRN (13:30)
[2025-01-10] MEDS ORDERED: DOCUSATE SOD 100 MG CAP PO PRN (13:30)
[2025-01-10] MEDS ORDERED: ACETAMINOPHEN 325 MG TAB PO PRN (13:30)
[2025-01-10] MEDS: SODIUM CHLORIDE 0.9% 1,000 ML IV ONE ×2 (13:30→17:14)
--- NOTE | 2025-01-10 13:43 | DVHHP2 ---
History of Present Illness Reason for Visit: Back pain History of Present Illness Juli Calderon is an 84-year-old female with past medical history of hypothyroidism, asthma, gout, and hypertension, who came in with complaints of back pain. Patient states she has been experiencing back pain for about 1 month. The pain worsened prompting her to come to the hospital. Patient lives alone, but has family that checks on her daily. She is with her Son, daughter in law and granddaughter. Family states that they have noticed over the last few days that she does not drink much water and she is not using the bathroom very often. Patient denies any dysuria or frequency. Cardiovascular: HTN Pulmonary: Asthma Rheumatologic: Gout Endocrine: Hypothyroidism Past Surgical History: Cholecystectomy, Hysterectomy, Total hip replacement (Right), Total knee replacement (Bilateral), Tonsillectomy Smoke: No ALCOHOL: none Drugs: None Lives: Alone Domestic Violence: Neg Review of Systems Constitutional: No: Fever, Chills, Sweats, Weakness, Malaise, Other Eyes: No: Pain, Vision change, Conjunctivae inflammation, Eyelid inflammation, Other, Redness ENT: No: Ear pain, Ear discharge, Nose pain, Nose discharge, Nose congestion, Mouth pain, Mouth swelling, Throat pain, Throat swelling, Other Respiratory: No: Cough, Dry, Shortness of breath, SOB with excertion, Wheezing, Hemoptysis, Pleuritic Pain, Sputum, Wheezing, Other Cardiovascular: No: Chest Pain, Palpitations, Orthopnea, Paroxysmal Noc. Dyspnea, Edema, Lt Headedness, Other Gastrointestinal: No: Nausea, Vomiting, Abdominal Pain, Diarrhea, Constipation, Melena, Hematochezia, Other Genitourinary: No Dysuria, No Frequency, No Incontinence, No Hematuria, No Retention, No Other Musculoskeletal: back pain (left flank pain); No: other, neck pain, shoulder pain, arm pain, hand pain, leg pain, foot pain Skin: No: Rash, Lesions, Jaundice, Bruising, Other Neurological: No: Weakness, Numbness, Incoordination, Change in speech, Confusion, Seizures, Other Allergies: Coded Allergies: Sulfa Antibiotics (Verified Allergy, Intermediate, EDEMA, HIVES, 02/26/21) Medications Current Medications Medications Dose Ordered Sig/Lynne Route Start Time Stop Time Status Last Admin Dose Admin Acetaminophen/ Hydrocodone Bitart 1 tab Q4HP PRN PO 01/10/25 13:30 UNV Ondansetron HCl 4 mg Q4HP PRN IV 01/10/25 13:30 UNV Docusate Sodium 100 mg BIDPRN PRN PO 01/10/25 13:30 UNV Acetaminophen 650 mg Q6HP PRN PO 01/10/25 13:30 UNV Ceftriaxone Sodium 50 ml @ 100 mls/hr DAILY@09 IV 01/11/25 09:00 UNV Exam Vital Signs Vital Signs Date Time Temp Pulse Resp B/P (MAP) Pulse Ox O2 Delivery O2 Flow Rate FiO2 01/10/25 11:13 94 19 151/84 (106) 98 01/10/25 10:08 98.1 98.1 01/10/25 08:02 Room Air* 0 21 General Appearance: Alert, Oriented X3, Cooperative, mild distress HEENT: Atraumatic, PERRLA, Other (Mucous Mem dry) Respiratory: Clear to auscultation, Normal air movement Cardiovascular: Regular rate, Normal S1, Normal S2, No murmurs Abdominal: Normal bowel sounds, Soft, No tenderness, No hepatospenomegaly Extremities: No clubbing, No cyanosis, No edema, Normal pulses, No tenderness/swelling Skin: No rashes, No breakdown, No significant lesion Neuro: Normal gait, Normal speech, Strength at 5/5 X4 ext Psych/Mental Status: Mental status NL, Mood NL Labs/Xrays Labs Test 01/10/25 10:00 01/10/25 08:23 01/10/25 08:01 Range/Units Lactic Acid Level 1.6 0.4-2.0 mmol/L White Blood Count 6.7 4.4-10.8 10^3/uL Red Blood Count 4.91 4.0-5.20 10^6/uL Hemoglobin 15.9 12.2-16.2 g/dL Hematocrit 45.4 36.0-46.0 % Mean Corpuscular Volume 92.5 80.0-100.0 fL Mean Corpuscular Hemoglobin 32.4 H 28.0-32.0 pg Mean Corpuscular Hemoglobin Concent 35.0 32.0-36.0 g/dL Red Cell Distribution Width 13.6 11.8-14.3 % Platelet Count 202 140-450 10^3/uL Mean Platelet Volume 8.9 6.9-10.8 fL Neutrophils (%) (Auto) 53.5 37.0-80.0 % Lymphocytes (%) (Auto) 35.1 10.0-50.0 % Monocytes (%) (Auto) 8.7 0.0-12.0 % Eosinophils (%) (Auto) 2.3 0.0-7.0 % Basophils (%) (Auto) 0.4 0.0-2.0 % Neutrophils # (Auto) 3.6 1.6-8.6 10 ^3/uL Lymphocytes # (Auto) 2.4 0.4-5.4 10 ^3/uL Monocytes # (Auto) 0.6 0-1.3 10 ^3/uL Eosinophils # (Auto) 0.2 0-0.8 10 ^3/uL Basophils # (Auto) 0 0-0.2 10 ^3/uL Nucleated Red Blood Cells 0.1 % Sodium Level 139 136-145 mmol/L Potassium Level 3.6 3.5-5.1 mmol/L Chloride Level 105 98-107 mmol/L Carbon Dioxide Level 23 20-31 mmol/L Anion Gap 11 5-15 Blood Urea Nitrogen 18 9-23 mg/dL Creatinine 0.80 0.550-1.02 mg/dL Glomerular Filtration Rate Calc 73 >90 mL/min BUN/Creatinine Ratio 22.5 H 10.0-20.0 Serum Glucose 129 H 74-106 mg/dL Calcium Level 10.6 H 8.7-10.4 mg/dL Urine Color Yellow Yellow Urine Clarity Turbid H Clear Urine pH 5.5 5.0-9.0 Urine Specific [place] 1.032 1.001-1.035 Urine Protein Trace H Negative Urine Ketones 1+ H Negative Urine Blood Negative Negative /uL Urine Nitrite Negative Negative Urine Bilirubin Negative Negative Urine Urobilinogen 2 H Negative mg/dL Urine Leukocyte Esterase 3+ Negative /uL Urine RBC 1 0 - 4 /hpf Urine Microscopic WBC 18 H 0-5 /HPF Urine Squamous Epithelial Cells Few <5 /hpf Urine Bacteria None seen None Seen /hpf Urine Yeast (Budding) Occasional None Seen /hpf Urine Glucose Normal Normal mg/dL INDICATION: lower back pain TECHNIQUE: Frontal and lateral views of the lumbar spine were obtained. COMPARISON: None FINDINGS: Scoliotic curvature of spine . Multilevel degenerative changes most pronounced at L4-L5 and L5-s1 causing moderate degenerative changes and spinal canal stenosis. There are no fractures or subluxations. Vertebral body heights and disc spaces are well maintained. Paravertebral soft tissues are unremarkable. IMPRESSION: 1. Of the visualized spine, there is no evidence for fracture or subluxation. Assessment/Plan Assessment/Plan Assessment: Complicated UTI (urinary tract infection), Hypothyroidism, Gout, Hypertension, Plan: Admit to Med-Surg, IV antibiotics, IV hydration, Home medications reconciled, Plan discussed with: Patient, Daughter, Son My Orders Orders - CRISTHIAN BUENO Procedure Category Date Status Time Admit ADMIT 01/10/25 Transmitted 13:17 Code Status CODE 01/10/25 Transmitted 13:17 2 Gm Sodium Diet DIET 01/10/25 Transmitted Lunch Hydrocodone-Acet PHA 01/10/25 Logged 5/325mg Tab ([place] 13:30 Ondansetron Hcl PHA 01/10/25 Logged (Zofran) 13:30 Docusate Sodium PHA 01/10/25 Logged Capsule (Colace 13:30 Complete Blood Count LAB 01/11/25 Verified 04:00 Comprehensive LAB 01/11/25 Verified Metabolic Panel 04:00 Condition: Serious WALDEMAR 01/10/25 In Process 13:17 Acetaminophen Tablet PHA 01/10/25 Logged (Tylenol Tablet) 13:30 Ceftriaxone 1gm/50ml PHA 01/11/25 Logged D5w (Rocephin) 09:00 Sodium Chloride 0.9% PHA 01/10/25 Logged 13:30 Sodium Chloride 0.9% PHA 01/10/25 Logged 13:30 Urine Bacterial ROBY 01/10/25 Transmitted Culture 13:21 Date of Service: January 10, 2025 Billing Provider: CRISTHIAN BUENO Common Visit Codes: [id number] INP/OBS CARE (MOD) CRISTHIAN BUENO January 10, 2025 13:43
[2025-01-10] MEDS: HYDROcodone-ACET 5/325MG TAB PO PRN (17:14)
[2025-01-10 18:30] VITALS: BP_SYST 120; BP_SYST 123; BP_DIAS 49; BP_DIAS 74; PULSE 70; PULSE 78; PULSE 80; RESP 18; TEMP 97.6; TEMP 98.7; O2SAT 100; O2SAT 92; O2SAT 98
[2025-01-10 18:44] VITALS: BP 120/78; PULSE 64; RESP 16; TEMP 98.7; O2SAT 100
[2025-01-10 21:00] VITALS: BP 130/58; PULSE 84; RESP 18; TEMP 97.6; O2SAT 95
[2025-01-11 01:00] VITALS: BP 140/53; PULSE 87; RESP 18; TEMP 98; O2SAT 93
[2025-01-11 05:00] VITALS: BP 143/53; PULSE 90; RESP 18; RESP 96; TEMP 97.9; O2SAT 96
[2025-01-11] MEDS: LEVOTHYROXINE SODIUM 100 MCG TAB PO SCH (06:41)
[2025-01-11 08:08] LABS: Basophils # (auto) 0 10 ^3/uL (0-0.2); Basophils % (auto) 0.4 % (0.0-2.0); Eosinophils # (auto) 0.2 10 ^3/uL (0-0.8); Eosinophils % (auto) 3.7 % (0.0-7.0); Hematocrit 43.7 % (36.0-46.0); Hemoglobin 15.1 g/dL (12.2-16.2); Lymphocytes # (auto) 1.8 10 ^3/uL (0.4-5.4); Lymphocytes % (auto) 29.7 % (10.0-50.0); Mean Corpuscular Hemoglobin 32.2 pg (28.0-32.0); Mean Corpuscular Hgb Conc. 34.6 g/dL (32.0-36.0); Monocytes # (auto) 0.6 10 ^3/uL (0-1.3); Monocytes % (auto) 10.1 % (0.0-12.0); Neutrophils # (auto) 3.5 10 ^3/uL (1.6-8.6); Neutrophils % (auto) 56.1 % (37.0-80.0); Nucleated Red Blood Cells % 0.2 %; Platelet Count (auto) 159 10^3/uL (140-450); Red Cell Distribution Width 13.7 % (11.8-14.3); White Blood Cell 6.2 10^3/uL (4.4-10.8)
[2025-01-11 08:18] LABS: Alanine Aminotransferase 13 U/L (7-40); Albumin 3.9 g/dL (3.2-4.8); Alkaline Phosphatase 88 U/L (46-116); Anion Gap 8 (5-15); Aspartate Aminotransferase 17 U/L (13-40); BUN/Creatinine Ratio 19.2 (10.0-20.0); Bilirubin, Total 0.7 mg/dL (0.2-1.0); Blood Urea Nitrogen 15 mg/dL (9-23); Calcium 10.3 mg/dL (8.7-10.4); Carbon Dioxide 26 mmol/L (20-31); Potassium 3.8 mmol/L (3.5-5.1); Sodium 141 mmol/L (136-145); Total Protein 6.1 g/dL (5.7-8.2)
[2025-01-11 08:23] LABS: Chloride 107 mmol/L (98-107); Glucose 111 mg/dL (74-106)
[2025-01-11 09:00] VITALS: BP 130/53; PULSE 89; RESP 17; TEMP 98.1; O2SAT 95
[2025-01-11] MEDS: cefTRIAXone 1GM/50ML D5W 50 ML IV SCH (10:35)
[2025-01-11] MEDS: LOSARTAN POTASSIUM 50 MG TAB PO SCH (10:35)
[2025-01-11] MEDS: ALLOPURINOL 100 MG TAB PO SCH (10:36)
[2025-01-11] MEDS: TROLAMINE SALICYLATE 10% TOP CREAM TOP SCH (12:33)
[2025-01-11 13:00] VITALS: BP 133/69; PULSE 85; RESP 16; TEMP 97.8; O2SAT 94
--- NOTE | 2025-01-11 13:38 | DVHPN2 ---
Subjective 84-year-old female who came to the hospital due to complaint of about a month of back pain. The pain is in the left side of the lower back in the flank area, she went and saw a chiropractor but the treatment did not help and therefore she came here Here she was found to have UTI Changes from previous H/P or p: Changes Eyes: No Pain, No Vision change, No Conjunctivae inflammation, No Eyelid inflammation, No Other, No Redness ENT: No Ear pain, No Ear discharge, No Nose pain, No Nose discharge, No Nose congestion, No Mouth pain, No Mouth swelling, No Throat pain, No Throat swelling, No Other Cardiovascular: No Chest Pain, No Palpitations, No Orthopnea, No Paroxysmal Noc. Dyspnea, No Edema, No Lt Headedness, No Other Respiratory: No Cough, No Dry, No Shortness of breath, No SOB with excertion, No Wheezing, No Hemoptysis, No Pleuritic Pain, No Sputum, No Other Gastrointestinal: No Nausea, No Vomiting, No Abdominal Pain, No Diarrhea, No Constipation, No Melena, No Hematochezia, No Other Genitourinary: No Dysuria, No Frequency, No Incontinence, No Hematuria, No Retention, No Other Musculoskeletal: No other, No neck pain, No shoulder pain, No arm pain; back pain (left flank pain); No hand pain, No leg pain, No foot pain Skin: No Rash, No Lesions, No Jaundice, No Bruising, No Other Objective Vitals Vital Signs Date Time Temp Pulse Resp B/P (MAP) Pulse Ox O2 Delivery O2 Flow Rate FiO2 01/11/25 13:00 97.8 85 16 133/69 (90) 94 97.8 01/11/25 08:05 Room Air* 0 21 Intake/Output Intake and Output 01/11/25 07:00 Intake Total 250 ml Balance 250 ml Intake Oral 200 ml IV Total 50 ml # Voids 1 General Appearance: Alert, Oriented X3, Cooperative, No acute distress Lungs: Clear to auscultation, Normal air movement Cardiovascular: Regular rate, Normal S1, Normal S2 Abdomen: Normal bowel sounds, Soft, No tenderness Extremities: No edema Medications Current Medications Medications Dose Ordered Sig/Lynne Route Start Time Stop Time Status Last Admin Dose Admin Acetaminophen/ Hydrocodone Bitart 1 tab Q4HP PRN PO 01/10/25 13:30 01/11/25 10:36 1 TAB Ondansetron HCl 4 mg Q4HP PRN IV 01/10/25 13:30 Docusate Sodium 100 mg BIDPRN PRN PO 01/10/25 13:30 Acetaminophen 650 mg Q6HP PRN PO 01/10/25 13:30 Ceftriaxone Sodium 50 ml @ 100 mls/hr DAILY@09 IV 01/11/25 09:00 01/11/25 10:35 100 MLS/HR Levothyroxine Sodium 125 mcg QAM PO 01/11/25 07:00 01/11/25 06:41 125 MCG Allopurinol 300 mg DAILY PO 01/11/25 10:00 01/11/25 10:36 300 MG Losartan Potassium 100 mg DAILY PO 01/11/25 10:00 01/11/25 10:35 100 MG Trolamine Salicylate 1 applic Q6HP TOP 01/11/25 12:00 01/11/25 12:33 1 APPLIC Laboratory Results Laboratory Tests 01/11/25 06:00 Chemistry Test 01/11/25 06:00 Albumin 3.9 g/dL (3.2-4.8) Calcium Level 10.3 mg/dL (8.7-10.4) Total Protein 6.1 g/dL (5.7-8.2) LFT Test 01/11/25 06:00 Alanine Aminotransferase (ALT) 13 U/L (7-40) Alkaline Phosphatase 88 U/L (46-116) Aspartate Amino Transferase (AST) 17 U/L (13-40) Total Bilirubin 0.7 mg/dL (0.2-1.0) Urinalysis Test 01/10/25 08:01 Urine Color Yellow (Yellow) Urine Clarity Turbid (Clear) H Urine pH 5.5 (5.0-9.0) Urine Specific [place] 1.032 (1.001-1.035) Urine Protein Trace (Negative) H Urine Ketones 1+ (Negative) H Urine Blood Negative /uL (Negative) Urine Nitrite Negative (Negative) Urine Bilirubin Negative (Negative) Urine Urobilinogen 2 mg/dL (Negative) H Urine Leukocyte Esterase 3+ /uL (Negative) Urine RBC 1 /hpf (0 - 4) Urine Microscopic WBC 18 /HPF (0-5) H Urine Squamous Epithelial Cells Few /hpf (<5) Urine Bacteria None seen /hpf (None Seen) Urine Yeast (Budding) Occasional /hpf (None Urine Glucose Normal mg/dL (Normal) Microbiology Microbiology Date/Time Source Procedure Growth Status 01/10/25 10:00 Blood Blood Culture - Preliminary NO GROWTH AFTER 24 HOURS OF INCUBATION. Resulted 01/10/25 08:01 Voided Urine Urine Culture - Preliminary Resulted Assessment/Plan Assessment/Plan Lower back pain most likely muscular strain UTI Hypertension Asthma Gout Hypothyroidism Plan IV antibiotics ceftriaxone [place] p.r.n. for the pain Aspercreme topically to the back p.r.n. Resume home medications levothyroxine and losartan Monitor closely Blood culture and urine cultures are pending Discussed with the family at the bedside Full code Advance directives discussed for 15 minutes Plan discussed with: Patient My Orders Orders - EMMA SOMMERS MD Procedure Category Date Status Time Trolamine Salicylate PHA 01/11/25 In Process Topical (Aspercreme 12:00 Date of Service: January 11, 2025 Billing Provider: EMMA SOMMERS MD Common Visit Codes: [id number] INP/OBS CARE(HIGH) Secondary Visit Codes: [id number] CARE PLAN 30 MINUTES EMMA SOMMERS MD January 11, 2025 13:38
[2025-01-11 17:00] VITALS: BP 98/53; PULSE 94; RESP 16; TEMP 97.8; O2SAT 96
[2025-01-11 21:00] VITALS: BP 119/48; PULSE 88; RESP 18; TEMP 98.2; O2SAT 95
[2025-01-12 05:00] VITALS: BP 130/47; PULSE 86; RESP 18; TEMP 97.7; O2SAT 95
[2025-01-12 09:00] VITALS: BP 121/51; PULSE 71; RESP 16; TEMP 97.7; O2SAT 95
--- NOTE | 2025-01-12 12:15 | DVHPN2 ---
Subjective She is still complaining of pain in the left lower back, she says it is not better Changes from previous H/P or p: Changes Eyes: No Pain, No Vision change, No Conjunctivae inflammation, No Eyelid inflammation, No Other, No Redness ENT: No Ear pain, No Ear discharge, No Nose pain, No Nose discharge, No Nose congestion, No Mouth pain, No Mouth swelling, No Throat pain, No Throat swelling, No Other Cardiovascular: No Chest Pain, No Palpitations, No Orthopnea, No Paroxysmal Noc. Dyspnea, No Edema, No Lt Headedness, No Other Respiratory: No Cough, No Dry, No Shortness of breath, No SOB with excertion, No Wheezing, No Hemoptysis, No Pleuritic Pain, No Sputum, No Other Gastrointestinal: No Nausea, No Vomiting, No Abdominal Pain, No Diarrhea, No Constipation, No Melena, No Hematochezia, No Other Genitourinary: No Dysuria, No Frequency, No Incontinence, No Hematuria, No Retention, No Other Musculoskeletal: No other, No neck pain, No shoulder pain, No arm pain; back pain (left flank pain); No hand pain, No leg pain, No foot pain Skin: No Rash, No Lesions, No Jaundice, No Bruising, No Other Objective Vitals Vital Signs Date Time Temp Pulse Resp B/P (MAP) Pulse Ox O2 Delivery O2 Flow Rate FiO2 01/12/25 09:41 121/51 01/12/25 09:00 97.7 71 16 95 97.7 01/12/25 08:05 Room Air* 0 21 Intake/Output Intake and Output 01/12/25 07:00 Intake Total 825 ml Balance 825 ml Intake Oral 775 ml IV Total 50 ml # Voids 6 General Appearance: Alert, Oriented X3, Cooperative, No acute distress Lungs: Clear to auscultation, Normal air movement Cardiovascular: Regular rate, Normal S1, Normal S2 Abdomen: Normal bowel sounds, Soft, No tenderness Extremities: No edema Medications Current Medications Medications Dose Ordered Sig/Lynne Route Start Time Stop Time Status Last Admin Dose Admin Acetaminophen/ Hydrocodone Bitart 1 tab Q4HP PRN PO 01/10/25 13:30 01/12/25 09:42 1 TAB Ondansetron HCl 4 mg Q4HP PRN IV 01/10/25 13:30 Docusate Sodium 100 mg BIDPRN PRN PO 01/10/25 13:30 Acetaminophen 650 mg Q6HP PRN PO 01/10/25 13:30 Ceftriaxone Sodium 50 ml @ 100 mls/hr DAILY@09 IV 01/11/25 09:00 01/12/25 09:40 100 MLS/HR Levothyroxine Sodium 125 mcg QAM PO 01/11/25 07:00 01/11/25 06:41 125 MCG Allopurinol 300 mg DAILY PO 01/11/25 10:00 01/12/25 09:41 300 MG Losartan Potassium 100 mg DAILY PO 01/11/25 10:00 01/12/25 09:41 100 MG Trolamine Salicylate 1 applic Q6HP TOP 01/11/25 12:00 01/12/25 05:39 1 APPLIC Laboratory Results Laboratory Tests 01/11/25 06:00 Urinalysis Test 01/10/25 08:01 Urine Color Yellow (Yellow) Urine Clarity Turbid (Clear) H Urine pH 5.5 (5.0-9.0) Urine Specific [place] 1.032 (1.001-1.035) Urine Protein Trace (Negative) H Urine Ketones 1+ (Negative) H Urine Blood Negative /uL (Negative) Urine Nitrite Negative (Negative) Urine Bilirubin Negative (Negative) Urine Urobilinogen 2 mg/dL (Negative) H Urine Leukocyte Esterase 3+ /uL (Negative) Urine RBC 1 /hpf (0 - 4) Urine Microscopic WBC 18 /HPF (0-5) H Urine Squamous Epithelial Cells Few /hpf (<5) Urine Bacteria None seen /hpf (None Seen) Urine Yeast (Budding) Occasional /hpf (None Urine Glucose Normal mg/dL (Normal) Microbiology Microbiology Date/Time Source Procedure Growth Status 01/10/25 10:00 Blood Blood Culture - Preliminary NO GROWTH AFTER 48 HOURS OF INCUBATION. Resulted 01/10/25 08:01 Voided Urine Urine Culture - Preliminary Resulted Assessment/Plan Assessment/Plan Lower back pain most likely muscular strain UTI Hypertension Asthma Gout Hypothyroidism Plan IV antibiotics ceftriaxone [place] p.r.n. for the pain Aspercreme topically to the back p.r.n. Resume home medications levothyroxine and losartan Monitor closely Blood culture and urine cultures are pending Discussed with the family at the bedside Full code Advance directives discussed for 15 minutes 01/12/2025: Continue current management with pain management Continue IV Rocephin Get a CT scan of the lumbar spine to rule out any bony structures abnormalities Continue physical therapy Plan discussed with: Patient Date of Service: January 12, 2025 Billing Provider: EMMA SOMMERS MD Common Visit Codes: [id number] INP/OBS CARE(HIGH) EMMA SOMMERS MD January 12, 2025 12:15
[2025-01-12 13:00] VITALS: BP 134/53; PULSE 83; RESP 16; TEMP 98; O2SAT 96
--- NOTE | 2025-01-12 15:29 | DVH ---
Indication: pain Technique: CT axial images of the lumbar spine are obtained without contrast. Coronal and sagittal re formats were obtained. Radiation Dose Information: CTDI volume is 24.06 mGy. Dose-length product is 822.39 mGy*cm Comparison: None FINDINGS: The lumbar vertebral body heights are maintained. Moderate to severe multilevel disc space narrowing most pronounced at L1-2. Prominent anterior osteophytosis L1-2. Moderate to severe lumbar facet hy pertrophic changes. Lumbar levocurvature. Moderate bilateral sacroiliac degenerative joint disease. M oderate to severe multilevel neural foraminal stenosis. Moderate to severe spinal canal stenosis at L 2-3, L3-4, L4-5. Aortic atherosclerotic disease. Colonic diverticula. IMPRESSION: 1. Moderate to severe lumbar degenerative disc disease.
[2025-01-12 16:56] VITALS: BP 129/50; PULSE 88; RESP 16; TEMP 98.2; O2SAT 94
[2025-01-12 21:00] VITALS: BP 122/45; PULSE 78; RESP 18; TEMP 98.5; O2SAT 95
[2025-01-13 01:00] VITALS: BP 134/47; PULSE 78; RESP 18; TEMP 98.1; O2SAT 93
[2025-01-13 05:00] VITALS: BP 138/52; PULSE 80; RESP 18; TEMP 97.9; O2SAT 93
[2025-01-13 08:57] VITALS: BP 127/58; PULSE 85; RESP 18; TEMP 97.5; O2SAT 95
[2025-01-13 13:00] VITALS: BP_SYST 139; BP_DIAS 139; BP_DIAS 63; PULSE 82; RESP 18; TEMP 98.1; O2SAT 95
[2025-01-13 17:00] VITALS: BP 118/61; PULSE 79; RESP 18; TEMP 98.5; O2SAT 96
--- NOTE | 2025-01-13 17:37 | DVHPN2 ---
Subjective Still c/o back pain CT LS showed DJD Changes from previous H/P or p: Changes Eyes: No Pain, No Vision change, No Conjunctivae inflammation, No Eyelid inflammation, No Other, No Redness ENT: No Ear pain, No Ear discharge, No Nose pain, No Nose discharge, No Nose congestion, No Mouth pain, No Mouth swelling, No Throat pain, No Throat swelling, No Other Cardiovascular: No Chest Pain, No Palpitations, No Orthopnea, No Paroxysmal Noc. Dyspnea, No Edema, No Lt Headedness, No Other Respiratory: No Cough, No Dry, No Shortness of breath, No SOB with excertion, No Wheezing, No Hemoptysis, No Pleuritic Pain, No Sputum, No Other Gastrointestinal: No Nausea, No Vomiting, No Abdominal Pain, No Diarrhea, No Constipation, No Melena, No Hematochezia, No Other Genitourinary: No Dysuria, No Frequency, No Incontinence, No Hematuria, No Retention, No Other Musculoskeletal: No other, No neck pain, No shoulder pain, No arm pain; back pain (left flank pain); No hand pain, No leg pain, No foot pain Skin: No Rash, No Lesions, No Jaundice, No Bruising, No Other Objective Vitals Vital Signs Date Time Temp Pulse Resp B/P (MAP) Pulse Ox O2 Delivery O2 Flow Rate FiO2 01/13/25 17:00 98.5 79 18 118/61 (80) 96 98.5 01/13/25 08:00 Room Air* 0 21 Intake/Output Intake and Output 01/13/25 07:00 Intake Total 750 ml Balance 750 ml Intake Oral 700 ml IV Total 50 ml # Voids 5 General Appearance: Alert, Oriented X3, Cooperative, No acute distress Lungs: Clear to auscultation, Normal air movement Cardiovascular: Regular rate, Normal S1, Normal S2 Abdomen: Normal bowel sounds, Soft, No tenderness Extremities: No edema Medications Current Medications Medications Dose Ordered Sig/Lynne Route Start Time Stop Time Status Last Admin Dose Admin Acetaminophen/ Hydrocodone Bitart 1 tab Q4HP PRN PO 01/10/25 13:30 01/13/25 17:12 1 TAB Ondansetron HCl 4 mg Q4HP PRN IV 01/10/25 13:30 Docusate Sodium 100 mg BIDPRN PRN PO 01/10/25 13:30 Acetaminophen 650 mg Q6HP PRN PO 01/10/25 13:30 Ceftriaxone Sodium 50 ml @ 100 mls/hr DAILY@09 IV 01/11/25 09:00 01/13/25 09:58 100 MLS/HR Levothyroxine Sodium 125 mcg QAM PO 01/11/25 07:00 01/13/25 06:31 125 MCG Allopurinol 300 mg DAILY PO 01/11/25 10:00 01/13/25 09:59 300 MG Losartan Potassium 100 mg DAILY PO 01/11/25 10:00 01/13/25 09:59 100 MG Trolamine Salicylate 1 applic Q6HP TOP 01/11/25 12:00 01/13/25 11:55 1 APPLIC Laboratory Results Laboratory Tests 01/11/25 06:00 Urinalysis Test 01/10/25 08:01 Urine Color Yellow (Yellow) Urine Clarity Turbid (Clear) H Urine pH 5.5 (5.0-9.0) Urine Specific [place] 1.032 (1.001-1.035) Urine Protein Trace (Negative) H Urine Ketones 1+ (Negative) H Urine Blood Negative /uL (Negative) Urine Nitrite Negative (Negative) Urine Bilirubin Negative (Negative) Urine Urobilinogen 2 mg/dL (Negative) H Urine Leukocyte Esterase 3+ /uL (Negative) Urine RBC 1 /hpf (0 - 4) Urine Microscopic WBC 18 /HPF (0-5) H Urine Squamous Epithelial Cells Few /hpf (<5) Urine Bacteria None seen /hpf (None Seen) Urine Yeast (Budding) Occasional /hpf (None Urine Glucose Normal mg/dL (Normal) Microbiology Microbiology Date/Time Source Procedure Growth Status 01/10/25 10:00 Blood Blood Culture - Preliminary NO GROWTH AFTER 72 HOURS OF INCUBATION. Resulted 01/10/25 08:01 Voided Urine Urine Culture - Final Complete Assessment/Plan Assessment/Plan Lower back pain most likely muscular strain UTI Hypertension Asthma Gout Hypothyroidism Plan IV antibiotics ceftriaxone [place] p.r.n. for the pain Aspercreme topically to the back p.r.n. Resume home medications levothyroxine and losartan Monitor closely Blood culture and urine cultures are pending Discussed with the family at the bedside Full code Advance directives discussed for 15 minutes 01/12/2025: Continue current management with pain management Continue IV Rocephin Get a CT scan of the lumbar spine to rule out any bony structures abnormalities Continue physical therapy 01/13/25: Continue Aspercreme Hot pack [place] prn Out of bed prn Plan discussed with: Patient My Orders Orders - EMMA SOMMERS MD Procedure Category Date Status Time Hot Pack ED NURSING 01/13/25 Transmitted Date of Service: January 13, 2025 Billing Provider: EMMA SOMMERS MD Common Visit Codes: [id number] INP/OBS CARE(HIGH) EMMA SOMMERS MD January 13, 2025 17:37
[2025-01-13 21:00] VITALS: BP 118/47; PULSE 86; RESP 16; TEMP 98; O2SAT 98
[2025-01-14] VITALS (7 sets, daily range): BP systolic 112–141; BP diastolic 48–74; PULSE 74–90; RESP 16–20; TEMP 97.7–98.1; O2SAT 95–99
--- NOTE | 2025-01-14 12:27 | DVHPN2 ---
Subjective Still c/o back pain CT LS showed DJD Changes from previous H/P or p: Changes Eyes: No Pain, No Vision change, No Conjunctivae inflammation, No Eyelid inflammation, No Other, No Redness ENT: No Ear pain, No Ear discharge, No Nose pain, No Nose discharge, No Nose congestion, No Mouth pain, No Mouth swelling, No Throat pain, No Throat swelling, No Other Cardiovascular: No Chest Pain, No Palpitations, No Orthopnea, No Paroxysmal Noc. Dyspnea, No Edema, No Lt Headedness, No Other Respiratory: No Cough, No Dry, No Shortness of breath, No SOB with excertion, No Wheezing, No Hemoptysis, No Pleuritic Pain, No Sputum, No Other Gastrointestinal: No Nausea, No Vomiting, No Abdominal Pain, No Diarrhea, No Constipation, No Melena, No Hematochezia, No Other Genitourinary: No Dysuria, No Frequency, No Incontinence, No Hematuria, No Retention, No Other Musculoskeletal: No other, No neck pain, No shoulder pain, No arm pain; back pain (left flank pain); No hand pain, No leg pain, No foot pain Skin: No Rash, No Lesions, No Jaundice, No Bruising, No Other Objective Vitals Vital Signs Date Time Temp Pulse Resp B/P (MAP) Pulse Ox O2 Delivery O2 Flow Rate FiO2 01/14/25 09:49 120/75 01/14/25 09:00 98.1 80 16 98 98.1 01/13/25 20:00 Room Air* 0 21 Intake/Output Intake and Output 01/14/25 07:00 Intake Total 1260 ml Balance 1260 ml Intake Oral 1210 ml IV Total 50 ml # Voids 6 General Appearance: Alert, Oriented X3, Cooperative, No acute distress Lungs: Clear to auscultation, Normal air movement Cardiovascular: Regular rate, Normal S1, Normal S2 Abdomen: Normal bowel sounds, Soft, No tenderness Extremities: No edema Medications Current Medications Medications Dose Ordered Sig/Lynne Route Start Time Stop Time Status Last Admin Dose Admin Acetaminophen/ Hydrocodone Bitart 1 tab Q4HP PRN PO 01/10/25 13:30 01/14/25 10:31 1 TAB Ondansetron HCl 4 mg Q4HP PRN IV 01/10/25 13:30 Docusate Sodium 100 mg BIDPRN PRN PO 01/10/25 13:30 Acetaminophen 650 mg Q6HP PRN PO 01/10/25 13:30 Ceftriaxone Sodium 50 ml @ 100 mls/hr DAILY@09 IV 01/11/25 09:00 01/14/25 09:49 100 MLS/HR Levothyroxine Sodium 125 mcg QAM PO 01/11/25 07:00 01/14/25 05:58 125 MCG Allopurinol 300 mg DAILY PO 01/11/25 10:00 01/14/25 09:49 300 MG Losartan Potassium 100 mg DAILY PO 01/11/25 10:00 01/14/25 09:49 100 MG Trolamine Salicylate 1 applic Q6HP TOP 01/11/25 12:00 01/14/25 12:06 1 APPLIC Laboratory Results Laboratory Tests 01/11/25 06:00 Urinalysis Test 01/10/25 08:01 Urine Color Yellow (Yellow) Urine Clarity Turbid (Clear) H Urine pH 5.5 (5.0-9.0) Urine Specific [place] 1.032 (1.001-1.035) Urine Protein Trace (Negative) H Urine Ketones 1+ (Negative) H Urine Blood Negative /uL (Negative) Urine Nitrite Negative (Negative) Urine Bilirubin Negative (Negative) Urine Urobilinogen 2 mg/dL (Negative) H Urine Leukocyte Esterase 3+ /uL (Negative) Urine RBC 1 /hpf (0 - 4) Urine Microscopic WBC 18 /HPF (0-5) H Urine Squamous Epithelial Cells Few /hpf (<5) Urine Bacteria None seen /hpf (None Seen) Urine Yeast (Budding) Occasional /hpf (None Urine Glucose Normal mg/dL (Normal) Microbiology Microbiology Date/Time Source Procedure Growth Status 01/10/25 10:00 Blood Blood Culture - Preliminary NO GROWTH AFTER 72 HOURS OF INCUBATION. Resulted 01/10/25 08:01 Voided Urine Urine Culture - Final Complete Assessment/Plan Assessment/Plan Lower back pain most likely muscular strain UTI Hypertension Asthma Gout Hypothyroidism Plan IV antibiotics ceftriaxone [place] p.r.n. for the pain Aspercreme topically to the back p.r.n. Resume home medications levothyroxine and losartan Monitor closely Blood culture and urine cultures are pending Discussed with the family at the bedside Full code Advance directives discussed for 15 minutes 01/12/2025: Continue current management with pain management Continue IV Rocephin Get a CT scan of the lumbar spine to rule out any bony structures abnormalities Continue physical therapy 01/13/25: Continue Aspercreme Hot pack [place] prn Out of bed prn 01/14/2025: The patient is still complaining of her back pain She says it is not getting better Add naproxen 250 mg twice a day with meals [place] p.r.n. Monitor closely Plan discussed with: Patient Date of Service: January 14, 2025 Billing Provider: EMMA SOMMERS MD Common Visit Codes: [id number] INP/OBS CARE(HIGH) EMMA SOMMERS MD January 14, 2025 12:27
[2025-01-14] MEDS: NAPROXEN 500 MG TAB PO ONE (13:30)
[2025-01-14] MEDS: NAPROXEN 500 MG TAB PO SCH (18:08)
[2025-01-15] VITALS (7 sets, daily range): BP systolic 104–149; BP diastolic 50–65; PULSE 70–98; RESP 16–20; TEMP 97.4–97.9; O2SAT 95–98
--- NOTE | 2025-01-15 12:22 | DVHPN2 ---
Subjective Still complaining of back pain Changes from previous H/P or p: Changes Eyes: No Pain, No Vision change, No Conjunctivae inflammation, No Eyelid inflammation, No Other, No Redness ENT: No Ear pain, No Ear discharge, No Nose pain, No Nose discharge, No Nose congestion, No Mouth pain, No Mouth swelling, No Throat pain, No Throat swelling, No Other Cardiovascular: No Chest Pain, No Palpitations, No Orthopnea, No Paroxysmal Noc. Dyspnea, No Edema, No Lt Headedness, No Other Respiratory: No Cough, No Dry, No Shortness of breath, No SOB with excertion, No Wheezing, No Hemoptysis, No Pleuritic Pain, No Sputum, No Other Gastrointestinal: No Nausea, No Vomiting, No Abdominal Pain, No Diarrhea, No Constipation, No Melena, No Hematochezia, No Other Genitourinary: No Dysuria, No Frequency, No Incontinence, No Hematuria, No Retention, No Other Musculoskeletal: No other, No neck pain, No shoulder pain, No arm pain; back pain (left flank pain); No hand pain, No leg pain, No foot pain Skin: No Rash, No Lesions, No Jaundice, No Bruising, No Other Objective Vitals Vital Signs Date Time Temp Pulse Resp B/P (MAP) Pulse Ox O2 Delivery O2 Flow Rate FiO2 01/15/25 09:21 97.9 80 17 126/63 (84) 95 97.9 01/15/25 08:00 Room Air* 0 21 Intake/Output Intake and Output 01/15/25 07:00 Intake Total 1550 ml Balance 1550 ml Intake Oral 1500 ml IV Total 50 ml # Voids 10 General Appearance: Alert, Oriented X3, Cooperative, No acute distress Lungs: Clear to auscultation, Normal air movement Cardiovascular: Regular rate, Normal S1, Normal S2 Abdomen: Normal bowel sounds, Soft, No tenderness Extremities: No edema Medications Current Medications Medications Dose Ordered Sig/Lynne Route Start Time Stop Time Status Last Admin Dose Admin Acetaminophen/ Hydrocodone Bitart 1 tab Q4HP PRN PO 01/10/25 13:30 01/15/25 00:47 1 TAB Ondansetron HCl 4 mg Q4HP PRN IV 01/10/25 13:30 Docusate Sodium 100 mg BIDPRN PRN PO 01/10/25 13:30 Acetaminophen 650 mg Q6HP PRN PO 01/10/25 13:30 Ceftriaxone Sodium 50 ml @ 100 mls/hr DAILY@09 IV 01/11/25 09:00 01/15/25 08:56 100 MLS/HR Levothyroxine Sodium 125 mcg QAM PO 01/11/25 07:00 01/15/25 06:13 125 MCG Allopurinol 300 mg DAILY PO 01/11/25 10:00 01/15/25 08:55 300 MG Losartan Potassium 100 mg DAILY PO 01/11/25 10:00 01/15/25 08:56 100 MG Trolamine Salicylate 1 applic Q6HP TOP 01/11/25 12:00 01/15/25 12:08 1 APPLIC Naproxen 250 mg BID PO 01/14/25 18:00 01/15/25 08:55 250 MG Laboratory Results Laboratory Tests 01/11/25 06:00 Urinalysis Test 01/10/25 08:01 Urine Color Yellow (Yellow) Urine Clarity Turbid (Clear) H Urine pH 5.5 (5.0-9.0) Urine Specific [place] 1.032 (1.001-1.035) Urine Protein Trace (Negative) H Urine Ketones 1+ (Negative) H Urine Blood Negative /uL (Negative) Urine Nitrite Negative (Negative) Urine Bilirubin Negative (Negative) Urine Urobilinogen 2 mg/dL (Negative) H Urine Leukocyte Esterase 3+ /uL (Negative) Urine RBC 1 /hpf (0 - 4) Urine Microscopic WBC 18 /HPF (0-5) H Urine Squamous Epithelial Cells Few /hpf (<5) Urine Bacteria None seen /hpf (None Seen) Urine Yeast (Budding) Occasional /hpf (None Urine Glucose Normal mg/dL (Normal) Microbiology Microbiology Date/Time Source Procedure Growth Status 01/10/25 10:00 Blood Blood Culture - Final NO GROWTH AFTER 5 DAYS OF INCUBATION. Complete 01/10/25 08:01 Voided Urine Urine Culture - Final Complete Assessment/Plan Assessment/Plan Lower back pain most likely muscular strain UTI Hypertension Asthma Gout Hypothyroidism Plan IV antibiotics ceftriaxone [place] p.r.n. for the pain Aspercreme topically to the back p.r.n. Resume home medications levothyroxine and losartan Monitor closely Blood culture and urine cultures are pending Discussed with the family at the bedside Full code Advance directives discussed for 15 minutes 01/12/2025: Continue current management with pain management Continue IV Rocephin Get a CT scan of the lumbar spine to rule out any bony structures abnormalities Continue physical therapy 01/13/25: Continue Aspercreme Hot pack [place] prn Out of bed prn 01/14/2025: The patient is still complaining of her back pain She says it is not getting better Add naproxen 250 mg twice a day with meals [place] p.r.n. Monitor closely 01/15/2025: Continue the current management The patient is still says she has significant pain in her back and is not able to go home Out of bed as tolerated Continue naproxen 250 mg twice a day in addition to [place] p.r.n. in addition to the topicals Plan discussed with: Patient My Orders Orders - EMMA SOMMERS MD Procedure Category Date Status Time Naproxen Tablet PHA 01/14/25 In Process (Naprosyn Tablet) 18:00 Date of Service: January 15, 2025 Billing Provider: EMMA SOMMERS MD Common Visit Codes: [id number] INP/OBS CARE(MOD) EMMA SOMMERS MD January 15, 2025 12:22
[2025-01-16 00:51] VITALS: BP 134/73; PULSE 55; RESP 12; TEMP 98.1; O2SAT 97
[2025-01-16 05:00] VITALS: BP 165/76; PULSE 84; RESP 16; TEMP 97.9; O2SAT 95
[2025-01-16 08:15] VITALS: PULSE 98; RESP 18; O2SAT 98
[2025-01-16 08:30] VITALS: BP 143/61; PULSE 75; RESP 18; TEMP 97.7; O2SAT 98
[2025-01-16 12:34] VITALS: BP 133/70; PULSE 80; RESP 16; TEMP 98.9; O2SAT 95
[2025-01-16] MEDS ORDERED: NAP500T PO (13:48)
--- NOTE | 2025-01-16 13:51 | DVHDS2 ---
Discharge Summary Date of Admission January 10, 2025 at 13:17 Date of Discharge: January 16, 2025 Labs/Diagnostic Data: Laboratory Results Test 01/11/25 06:00 01/10/25 10:00 01/10/25 08:01 White Blood Count 6.2 10^3/uL (4.4-10.8) Red Blood Count 4.70 10^6/uL (4.0-5.20) Hemoglobin 15.1 g/dL (12.2-16.2) Hematocrit 43.7 % (36.0-46.0) Mean Corpuscular Volume 93.0 fL (80.0-100.0) Mean Corpuscular Hemoglobin 32.2 pg (28.0-32.0) Mean Corpuscular Hemoglobin Concent 34.6 g/dL (32.0-36.0) Red Cell Distribution Width 13.7 % (11.8-14.3) Platelet Count 159 10^3/uL (140-450) Mean Platelet Volume 9.4 fL (6.9-10.8) Neutrophils (%) (Auto) 56.1 % (37.0-80.0) Lymphocytes (%) (Auto) 29.7 % (10.0-50.0) Monocytes (%) (Auto) 10.1 % (0.0-12.0) Eosinophils (%) (Auto) 3.7 % (0.0-7.0) Basophils (%) (Auto) 0.4 % (0.0-2.0) Neutrophils # (Auto) 3.5 10 ^3/uL (1.6-8.6) Lymphocytes # (Auto) 1.8 10 ^3/uL (0.4-5.4) Monocytes # (Auto) 0.6 10 ^3/uL (0-1.3) Eosinophils # (Auto) 0.2 10 ^3/uL (0-0.8) Basophils # (Auto) 0 10 ^3/uL (0-0.2) Nucleated Red Blood Cells 0.2 % Sodium Level 141 mmol/L (136-145) Potassium Level 3.8 mmol/L (3.5-5.1) Chloride Level 107 mmol/L (98-107) Carbon Dioxide Level 26 mmol/L (20-31) Anion Gap 8 (5-15) Blood Urea Nitrogen 15 mg/dL (9-23) Creatinine 0.78 mg/dL (0.550-1.02) Glomerular Filtration Rate Calc 75 mL/min (>90) BUN/Creatinine Ratio 19.2 (10.0-20.0) Serum Glucose 111 mg/dL (74-106) Calcium Level 10.3 mg/dL (8.7-10.4) Total Bilirubin 0.7 mg/dL (0.2-1.0) Aspartate Amino Transferase (AST) 17 U/L (13-40) Alanine Aminotransferase (ALT) 13 U/L (7-40) Alkaline Phosphatase 88 U/L (46-116) Total Protein 6.1 g/dL (5.7-8.2) Albumin 3.9 g/dL (3.2-4.8) Lactic Acid Level 1.6 mmol/L (0.4-2.0) Urine Color Yellow (Yellow) Urine Clarity Turbid (Clear) Urine pH 5.5 (5.0-9.0) Urine Specific [place] 1.032 (1.001-1.035) Urine Protein Trace (Negative) Urine Ketones 1+ (Negative) Urine Blood Negative /uL (Negative) Urine Nitrite Negative (Negative) Urine Bilirubin Negative (Negative) Urine Urobilinogen 2 mg/dL (Negative) Urine Leukocyte Esterase 3+ /uL (Negative) Urine RBC 1 /hpf (0 - 4) Urine Microscopic WBC 18 /HPF (0-5) Urine Squamous Epithelial Cells Few /hpf (<5) Urine Bacteria None seen /hpf (None Seen) Urine Yeast (Budding) Occasional /hpf (None Urine Glucose Normal mg/dL (Normal) Other Laboratory Tests 01/11/25 06:00 Brief Hx & Hospital Course: Final diagnoses: Lower back pain most likely muscular strain UTI Hypertension Asthma Gout Hypothyroidism 84-year-old female who was admitted because of low back pain. Evaluation was negative CT scan of the lumbar spine was negative Her pain is localized to the left lower back over the area of the sacroiliac joint She was given topical treatment and then also an NSAIDs She said it is not helping The pain is steady The patient is stable however, no neurological symptoms or radiation of the pain to the extremities Discussed her condition with her and with her family at the bedside The patient is stable for discharge Take naproxen 250 mg twice a day Tylenol as needed Follow up with her primary care physician as an outpatient She was also treated for UTI here however it was asymptomatic and not related to the pain Condition at Discharge: Stable Final Diagnosis/Problems List Lower back pain most likely muscular strain UTI Hypertension Asthma Gout Hypothyroidism Discharge Disposition: Home SNF Discharge Will this Physician continue t: No Discharge Statement: "Patient was advised to return to the ER or call 911 if any headaches, dizziness, shortness of breath, chest pain, abdominal pain, bleeding, fevers, or worsening of medical condition. Patient was counseled about treatment plan, medications, possible side effects, patient�verbalized understanding. All questions were answered to the best of my ability. This discharge took greater then 30 minutes in planning, reviewing documentation, counseling the patient, and discussing with other team members." ASSESSMENT ASSESSMENT Assessment Date of Service: January 16, 2025 Billing Provider: EMMA SOMMERS MD Common Visit Codes: [id number] DISCH DAY >30min EMMA SOMMERS MD January 16, 2025 13:51
[2025-01-16 14:40] VITALS: BP 133/70; PULSE 80; RESP 16; TEMP 98; O2SAT 95
== END 2025-01-16 15:45 | disposition home or self-care (01) | DRG 563 ==
LOC: EDBD 07:00 → EDSEX 07:00 → ER 07:00 → OVERFLOW 13:17 → WEST WING 20:35
PROVIDERS: ADMIT Internal Medicine Geriatric Medicine; ATTEND Internal Medicine Geriatric Medicine
DX: S39.012A Strain of muscle, fascia and tendon of lower back, initial encounter (principal); N30.00 Acute cystitis without hematuria; I10 Essential (primary) hypertension; E03.9 Hypothyroidism, unspecified; M10.9 Gout, unspecified; X58.XXXA Exposure to other specified factors, initial encounter; J45.909 Unspecified asthma, uncomplicated; Z96.653 Presence of artificial knee joint, bilateral; Z88.2 Allergy status to sulfonamides; Z79.899 Other long term (current) drug therapy; Z90.710 Acquired absence of both cervix and uterus; Z90.49 Acquired absence of other specified parts of digestive tract; Y93.89 Activity, other specified; Y92.89 Other specified places as the place of occurrence of the external cause; Y99.8 Other external cause status
CPT/HCPCS: 36415; 72100; 72131; 80048; 80053; 81001; 83605; 85025; 87040; 87086; 97110; 97116; 97163; 97530; G0378; J2405

== ENCOUNTER 2025-01-21 12:17 | Emergency (ER) | payer MEDICARE ==
[~2025-01-21] VITALS: Ht 165.1 cm; Wt 77.2 kg
[~2025-01-21 12:17] MED LIST changes: +NAP500T PO
[2025-01-21 12:43] VITALS: PULSE 74; RESP 15; O2SAT 96
--- NOTE | 2025-01-21 12:46 | ED.PDOC ---
General HPI Comments 84 year old female JULIO presents to the ED with chief complaint of lower back pain. Patient reports that she has been experiencing mid lower back pain for the past few days along with associated loss of appetite and nausea for the past 2 weeks. Patient relays that she has been dealing with a recurrent UTI for the past 2 months, being given antibiotics last week for it, but no relief noted. Patient denies any heavy lifting, strenuous activity, chest pain, SOB, dysuria, hematuria, flank pain, abdominal pain, vomiting, or diarrhea. Chief Complaint: Back Pain Time Seen by MD: 12:28 Primary Care Provider: REYNA Reviewed notes: Nurses Notes, Lamp Mechanic Notes, Medications, Allergies Allergies: Coded Allergies: Sulfa Antibiotics (Verified Allergy, Intermediate, EDEMA, HIVES, 02/26/21) Home Meds Active Scripts Naproxen (NAPROSYN TABLET) 500 Mg Tb, 250 MG PO BID for 10 Days, #20 TAB Prov:EMMA SOMMERS MD 01/16/25 Reported Medications Cyanocobalamin (B12) 1,000 Mcg Cap, 1000 MCG PO, CAP 02/21/21 Cholecalciferol (D3) 250 Mcg Cap, PO, CAP 02/21/21 Milk Thistle (Silybum Marianum (MILK THISTLE) 1,000 Mg Cap, 1000 MG OR, CAP 02/21/21 Magnesium Oxide (MAGNESIUM OXIDE) 400 Mg Tab, 400 MG PO, TAB 02/21/21 Sumatriptan Succinate (Imitrex) 50 Mg Tab, 1 TAB PO UD, #9 TAB 02/21/21 Btnxysrbflq-Qwglyexxwyen-Icxqh (Trelegy Ellipta 100-62.5-25 Mcg/INH) 1 Aer Aer, 1 AER IN, AER 02/21/21 Albuterol Sulfate (VENTOLIN MDI) 90 Mcg Ih, 50 MCG IN, INH 02/21/21 Amitriptyline Hcl (Amitriptyline Hcl) 50 Mg Tab, 50 MG PO HS, TAB 02/21/21 Losartan Potassium (Losartan Potassium) 100 Mg Tab, 100 MG PO DAILY, TAB 02/21/21 Montelukast Sodium (Singulair) 4 Mg Chw, PO DAILY, TAB.CHEW 02/21/21 Pantoprazole Sodium Sesquihydr (Pantoprazole Sodium) 40 Mg Tab, 25 MG PO DAILY, TAB 02/21/21 Levothyroxine Sodium (SYNTHROID TABLET) 100 Mcg Tb, 125 MCG PO DAILY, TAB 02/21/21 Allopurinol (Allopurinol) 300 Mg Tab, 300 MG PO DAILY, TAB 02/21/21 Potassium Chloride (POTASSIUM CHLORIDE CR) 10 Meq Tb, 10 MEQ PO QID, TAB 02/21/21 Information Source: Patient, Emergency Med Personnel Mode of Arrival: EMS Severity: Moderate Inability to void: None Timing: Hours Onset: Spontaneous Symptoms: None History of: UTI Location: Other (Mid lower back) Modifying factors: None Past Medical History PAST MEDICAL HISTORY: Asthma, Gout, HTN, Thyroid Surgical History: Cholecystectomy, Hysterectomy, Tonsillectomy MUSEUM TOUR GUIDE History: Denies all MUSEUM T[employer] GUIDE Hx Family History Family History: Reviewed,noncontributory to illness Social History Smoker: Non-Smoker Alcohol: Denies ETOH Use Drugs: Denies Drug Use Lives In: Home Constitutional: denies: chills, diaphoresis, fatigue, fever, malaise, sweats, weakness, others EENTM: denies: blurred vision, double vision, ear bleeding, ear discharge, ear drainage, ear pain, ear ringing, eye pain, eye redness, hearing loss, mouth pain, mouth swelling, nasal discharge, nose bleeding, nose congestion, nose pain, photophobia, tearing, throat pain, throat swelling, voice changes, others Respiratory: denies: cough, hemoptysis, orthopnea, SOB at rest, shortness of breath, SOB with excertion, stridor, wheezing, others Cardiovascular: denies: chest pain, dizzy spells, diaphoresis, Dyspnea on exertion, edema, irregular heart beat, left arm pain, lightheadedness, palpitations, PND, syncope, others Gastrointestinal: denies: abdomen distended, abdominal pain, blood streaked bowels, constipated, diarrhea, dysphagia, difficulty swallowing, hematemesis, melena, nausea, poor appetite, poor fluid intake, rectal bleeding, rectal pain, vomiting, others Genitourinary: denies: abnormal vagina bleeding, burning, dyspareunia, dysuria, flank pain, frequency, hematuria, incontinence, pain, , vagina discharge, urgency, others Neurological: denies: dizziness, fainting, headache, left sided numbness, left sided weakness, numbness, paresthesia, pre-existing deficit, right sided numbness, right sided weakness, seizure, speech problems, tingling, tremors, weakness, others Musculoskeletal: reports: back pain; denies: gout, joint pain, joint swelling, muscle pain, muscle stiffness, neck pain, others Integumetry: denies: bruises, change in color, change in hair/nails, dryness, laceration, lesions, lumps, rash, wounds, others Allergic/Immunocompromised: denies: Difficulty Healing, Frequent Infections, Hives, Itching, others Hematologic/Lymphatic: denies: anemia, blood clots, easy bleeding, easy bruising, swollen glands, others Endocrine: denies: excessive hunger, excessive sweating, excessive thirst, excessive urination, flushing, intolerance to cold, intolerance to heat, unexplained weight gain, unexplained weight loss, others Psychiatric: denies: anxiety, bipolar disorder, depression, hopeless, panic disorder, schizophrenia, sleepless, suicidal, others All Other Systems: Reviewed and Negative Physical Exam General Appearance: Mild Distress, Normal HEENT: Normal ENT Inspection, PERRL/EOMI, Pharynx Normal, TMs Normal Neck: Full Range of Motion, Non-Tender, Normal, Normal Inspection Respiratory: Chest Non-Tender, Lungs Clear, No Accessory Muscle Use, No Respiratory Distress, Normal Breath Sounds Cardiovascular: No Edema, No JVD, No Murmur, No Gallop, Normal Peripheral Pulses, Regular Rate/Rhythm Breast Exam: Deferred Gastrointestinal: No Organomegaly, Non Tender, No Pulsatile Mass, Normal Bowel Sounds, Soft Genitalia: Deferred Pelvic: Deferred Rectal: Deferred Extremities: No calf tenderness, Normal capillary refill, Normal inspection, Normal range of motion, Non-tender, No pedal edema Musculoskeletal : Location: Bilateral Extremity Location: Back Apperance: Normal, Limited ROM Neurologic: Alert, dye line operator II-XII nml as Tested, No Motor Deficits, Normal Affect, Normal Mood, No Sensory Deficits Cerebellar Function: Normal Reflexes: Normal Skin: Dry, Normal Color, Warm Peripheral Pulses: 1+ carotid (R), 1+ carotid (L) Lymphatic: No Adenopathy Was a procedure done? Was a procedure done?: No Differential Diagnosis Kidney stone (Female): DJD, Musculoskeletal pain, Pyelonephritis Kidney stone (Male): DJD, N/A Penile/Scrotal: N/A Urinary Problem (Male): N/A Urinary Problem (Female): UTI X-Ray, Labs, Meds, VS Vital Signs Date Time Temp Pulse Resp B/P (MAP) Pulse Ox O2 Delivery O2 Flow Rate FiO2 01/21/25 13:23 79 12 136/64 (88) 96 01/21/25 12:53 72 12 174/109 (130) 97 01/21/25 12:43 97.8 74 15 171/83 (112) 96 97.8 01/21/25 12:43 74 15 96 Room Air* 0 21 01/21/25 12:21 98.0 80 18 145/55 (85) 95 98.0 Lab Test 01/21/25 13:57 01/21/25 12:58 Range/Units Urine Color Yellow Yellow Urine Clarity Clear Clear Urine pH 6.0 5.0-9.0 Urine Specific [place] 1.028 1.001-1.035 Urine Protein Negative Negative Urine Ketones 1+ H Negative Urine Blood Negative Negative /uL Urine Nitrite Negative Negative Urine Bilirubin Negative Negative Urine Urobilinogen Normal Negative mg/dL Urine Leukocyte Esterase Trace Negative /uL Urine RBC 2 0 - 4 /hpf Urine Microscopic WBC 5 0-5 /HPF Urine Squamous Epithelial Cells Few <5 /hpf Urine Bacteria Few H None Seen /hpf Urine Mucus Few None Seen Urine Glucose Normal Normal mg/dL White Blood Count 7.3 4.4-10.8 10^3/uL Red Blood Count 4.92 4.0-5.20 10^6/uL Hemoglobin 15.7 12.2-16.2 g/dL Hematocrit 45.7 36.0-46.0 % Mean Corpuscular Volume 92.8 80.0-100.0 fL Mean Corpuscular Hemoglobin 31.8 28.0-32.0 pg Mean Corpuscular Hemoglobin Concent 34.3 32.0-36.0 g/dL Red Cell Distribution Width 13.5 11.8-14.3 % Platelet Count 184 140-450 10^3/uL Mean Platelet Volume 8.9 6.9-10.8 fL Neutrophils (%) (Auto) 56.8 37.0-80.0 % Lymphocytes (%) (Auto) 33.0 10.0-50.0 % Monocytes (%) (Auto) 8.3 0.0-12.0 % Eosinophils (%) (Auto) 1.4 0.0-7.0 % Basophils (%) (Auto) 0.5 0.0-2.0 % Neutrophils # (Auto) 4.1 1.6-8.6 10 ^3/uL Lymphocytes # (Auto) 2.4 0.4-5.4 10 ^3/uL Monocytes # (Auto) 0.6 0-1.3 10 ^3/uL Eosinophils # (Auto) 0.1 0-0.8 10 ^3/uL Basophils # (Auto) 0 0-0.2 10 ^3/uL Nucleated Red Blood Cells 0.1 % Sodium Level 137 136-145 mmol/L Potassium Level 3.5 3.5-5.1 mmol/L Chloride Level 105 98-107 mmol/L Carbon Dioxide Level 23 20-31 mmol/L Anion Gap 9 5-15 Blood Urea Nitrogen 14 9-23 mg/dL Creatinine 0.79 0.550-1.02 mg/dL Glomerular Filtration Rate Calc 74 >90 mL/min BUN/Creatinine Ratio 17.7 10.0-20.0 Serum Glucose 119 H 74-106 mg/dL Calcium Level 11.0 H 8.7-10.4 mg/dL Magnesium Level 1.7 1.6-2.6 mg/dL Current Medications Medications (Trade) Dose Ordered Sig/Lynne Route Start Time Stop Time Status Last Admin Metoclopramide HCl (Reglan Injection) 10 mg ONCE ONCE IV 01/21/25 12:45 01/21/25 12:46 DC 01/21/25 13:16 Sodium Chloride 500 ml @ 500 mls/hr Q1H ONCE IV 01/21/25 12:45 01/21/25 13:44 DC 01/21/25 13:16 Ketorolac Tromethamine (Toradol Injection) 30 mg ONCE ONCE IV 01/21/25 13:15 01/21/25 13:16 DC 01/21/25 13:16 X-Ray, Labs, Meds, VS Comment COURSE IN THE EMERGENCY DEPARTMENT EVENTFUL PATIENT CAME IN BECAUSE OF BACK PAIN HISTORY OF UTIS SHE IS ALSO COMPLAINING OF NAUSEA PATIENT WITH A HISTORY OF GOUT THYROID GERD HYPERTENSION COPD AND MIGRAINES THE BLOOD PRESSURE WAS 154 OVER C5 CBC NORMAL URINE NEGATIVE BNP NEGATIVE MAGNESIUM 1.7 PATIENT WILL BE DISCHARGED TO FOLLOW UP WITH YOUR PCP Time of 1ST Reevaluation: 13:28 Reevaluation 1ST: Unchanged Time of 2ND Reevaluation: 15:11 Reevaluation 2ND: Improved Consultation: PCP Patient Education/Counseling: Diagnosis, Treatment, Prognosis, Need For Follow Up Family Education/Counseling: Diagnosis, Treatment, Prognosis, Need For Follow Up, No Family Present Departure 1 Departure Time of Disposition: 15:12 Impression: Primary Impression: Lumbar sprain Qualified Codes: S33.5XXA - Sprain of ligaments of lumbar spine, initial en counter Ruled Out: Complicated UTI (urinary tract infection) Disposition: HOME / SELF CARE / HOMELESS Condition: Fair Additional Instructions: LOCAL HEAT AND FOLLOW UP WITH YOUR PCP e-Prescriptions Cyclobenzaprine HCl (Cyclobenzaprine Hydrochlo) 10 Mg Tab 10 MG PO TID, #30 TAB Prov: MARGARITA BRAND MD 01/21/25 Naproxen (NAPROSYN TABLET) 500 Mg Tb 1 TAB PO BID for 10 Days, #20 TAB 1 Refill Prov: MARGARITA BRAND MD 01/21/25 Discharged With: Self Critical Care Note Critical Care Time?: No Stability Stability form required: No Heart Score Heart Score: Heart Score Response (Comments) Value History N/A 0 EKG N/A 0 Age >65 2 Risk Factors 1 or 2 risk factors 1 Troponin N/A 0 Total 3 I personally scribed for MARGARITA BRAND MD ([email or web address]) on 01/21/25 at 12:46. Electronically submitted by Wellington Brooks ([email or web address]). MARGARITA BRAND MD January 21, 2025 12:46
[2025-01-21 13:06] LABS: Basophils # (auto) 0 10 ^3/uL (0-0.2); Basophils % (auto) 0.5 % (0.0-2.0); Eosinophils # (auto) 0.1 10 ^3/uL (0-0.8); Eosinophils % (auto) 1.4 % (0.0-7.0); Hematocrit 45.7 % (36.0-46.0); Hemoglobin 15.7 g/dL (12.2-16.2); Lymphocytes # (auto) 2.4 10 ^3/uL (0.4-5.4); Mean Corpuscular Hemoglobin 31.8 pg (28.0-32.0); Mean Corpuscular Hgb Conc. 34.3 g/dL (32.0-36.0); Mean Corpuscular Volume 92.8 fL (80.0-100.0); Monocytes # (auto) 0.6 10 ^3/uL (0-1.3); Monocytes % (auto) 8.3 % (0.0-12.0); Neutrophils # (auto) 4.1 10 ^3/uL (1.6-8.6); Neutrophils % (auto) 56.8 % (37.0-80.0); Nucleated Red Blood Cells % 0.1 %; Platelet Count (auto) 184 10^3/uL (140-450); Red Blood Cells 4.92 10^6/uL (4.0-5.20); Red Cell Distribution Width 13.5 % (11.8-14.3); White Blood Cell 7.3 10^3/uL (4.4-10.8)
[2025-01-21 13:15] LABS: Chloride 105 mmol/L (98-107); Potassium 3.5 mmol/L (3.5-5.1); Sodium 137 mmol/L (136-145)
[2025-01-21 13:16] LABS: Anion Gap 9 (5-15); Carbon Dioxide 23 mmol/L (20-31)
[2025-01-21] MEDS: METOCLOPRAMIDE HCL 5MG/ml INJ 2ml VIAL IV ONE (13:16)
[2025-01-21] MEDS: SODIUM CHLORIDE 0.9% 500 ML IV ONE (13:16)
[2025-01-21] MEDS: KETOROLAC TROMETH 30 MG/ML 1ML VIAL IV ONE (13:16)
[2025-01-21 13:21] LABS: BUN/Creatinine Ratio 17.7 (10.0-20.0); Blood Urea Nitrogen 14 mg/dL (9-23)
[2025-01-21 13:22] LABS: Magnesium 1.7 mg/dL (1.6-2.6)
[2025-01-21 13:23] LABS: Glucose 119 mg/dL (74-106)
[2025-01-21 14:35] LABS: Urine Bacteria FEW /hpf (None Seen); Urine Blood Negative /uL (Negative); Urine Clarity Clear (Clear); Urine Color Yellow (Yellow); Urine Mucus FEW (None Seen); Urine Protein, UAD Negative (Negative); Urine Specific Gravity 1.028 (1.001-1.035); Urine Squamous Epithelial Cell FEW /hpf (<5); Urine Urobilinogen Normal (Negative); Urine WBC 5 /HPF (0-5)
[2025-01-21] MEDS ORDERED: CYCL-611 PO (15:14)
[2025-01-21] MEDS ORDERED: NAP500T PO (15:14)
[2025-01-21 16:00] VITALS: BP 153/69; PULSE 87; RESP 14; TEMP 98; O2SAT 96
== END 2025-01-21 16:17 | disposition home or self-care (01) ==
LOC: ER 12:17 → EDBD 12:17 → ER 16:17
DX: S33.5XXA Sprain of ligaments of lumbar spine, initial encounter (principal); J45.909 Unspecified asthma, uncomplicated; I10 Essential (primary) hypertension; Z90.710 Acquired absence of both cervix and uterus; Z90.49 Acquired absence of other specified parts of digestive tract; Z88.2 Allergy status to sulfonamides; X58.XXXA Exposure to other specified factors, initial encounter; Y93.89 Activity, other specified; Y92.89 Other specified places as the place of occurrence of the external cause; Y99.8 Other external cause status
CPT/HCPCS: 36415; 80048; 81001; 83735; 85025; 96374; 96375; 99285; J1885; J2765